=== PATIENT | female | born 1960 | race African-American/Black ===

== ENCOUNTER 2017-10-05 14:39 | Inpatient (IN) | payer BC, OTHER ==
[~2017-10-05] VITALS: Ht 162.6 cm; Wt 88.3 kg
[~2017-10-05 14:39] MED LIST: CEPH500C3 PO; PRED20 PO
[2017-10-05 14:40] VITALS: BP 185/83; PULSE 101; RESP 16; TEMP 98.9; O2SAT 96
[2017-10-05 15:16] LABS: AUTOMATED NEUTROPHIL # 3.4 TH/MM3 (1.8-7.7); BASOPHIL % 0.6 % (0.0-2.0); EOSINOPHIL # 0.1 TH/MM3 (0-0.4); EOSINOPHIL % 1.8 % (0.0-4.0); HEMATOCRIT 35.5 % (35.0-46.0); HEMOGLOBIN 11.6 GM/DL (11.6-15.3); LYMPH % 30.5 % (9.0-44.0); LYMPHOCYTE # 1.8 TH/MM3 (1.0-4.8); MEAN CELL VOLUME 86.8 FL (80.0-100.0); MEAN CORPUSCULAR HEMOGLOBIN 28.4 PG (27.0-34.0); MEAN CORPUSCULAR HGB CONC 32.7 % (32.0-36.0); MONO % 8.8 % (0.0-8.0); MONOCYTE # 0.5 TH/MM3 (0-0.9); NEUT % 58.3 % (16.0-70.0); PLATELET COUNT 310 TH/MM3 (150-450); RED BLOOD COUNT 4.09 MIL/MM3 (4.00-5.30); RED CELL DISTRIBUTION WIDTH 13.9 % (11.6-17.2); WHITE BLOOD COUNT 5.9 TH/MM3 (4.0-11.0)
[2017-10-05 15:45] LABS: ALBUMIN 3.8 GM/DL (3.4-5.0); ALT (GPT) 25 U/L (10-53); AST (GOT) 14 U/L (15-37); BICARBONATE 28.7 MEQ/L (21.0-32.0); BLOOD UREA NITROGEN 12 MG/DL (7-18); CALCIUM 8.9 MG/DL (8.5-10.1); CHLORIDE 106 MEQ/L (98-107); CREATININE 0.88 MG/DL (0.50-1.00); GLOMERULAR FILTRATION RATE 80 ML/MIN (>89); GLUCOSE,RANDOM 148 MG/DL (74-106); SODIUM (NA) 141 MEQ/L (136-145)
[2017-10-05 15:47] LABS: ALKALINE PHOSPHATASE 149 U/L (45-117); TOTAL BILIRUBIN ADULT 0.3 MG/DL (0.2-1.0); TOTAL PROTEIN 8.6 GM/DL (6.4-8.2)
[2017-10-05 16:55] LABS: BACTERIA, URINE OCC /hpf; BILIRUBIN, URINE NEG (NEG); BLOOD, URINE TRACE (NEG); GLUCOSE,URINE NEG (NEG); KETONE, URINE NEG (NEG); MUCUS URINE FEW /lpf (OCC); NITRITE,URINE NEG (NEG); PH, URINE 5.5 (5.0-8.5); SQUAMOUS EPITHELIAL CELL URINE 4 /hpf (0-5); URINE COLOR YELLOW (YELLW/STRAW); URINE LEUKOCYTE ESTERASE MOD (NEG)
[2017-10-05 17:00] VITALS: BP 136/66; PULSE 92; RESP 18
[2017-10-05] MEDS ORDERED: LORazepam 2 MG/ML VIAL IM PRN (17:00)
[2017-10-05] MEDS ORDERED: MAGNESIUM HYDROXIDE SUSP 30 ML CUP PO PRN (17:00)
[2017-10-05] MEDS ORDERED: diphenhydrAMINE HCL 50 MG/ML VIAL IM PRN (17:00)
[2017-10-05] MEDS ORDERED: ALUMINUM/MAGNESIUM/SIMETH 30 ML CUP PO PRN (17:00)
--- NOTE | 2017-10-05 17:26 | PD ---
HPI Chief Complaint: Psychiatric Symptoms Time Seen by Provider: 16:53 Travel History International Travel<30 days: No Contact w/Intl Traveler<30days: No Traveled to known affect area: No History of Present Illness HPI 57-year-old female presents to the ED for evaluation of psych. Patient with brought here voluntarily for evaluation of this peer per patient she has been out of her medications for some time. The patient she has "sabotaggers" that are trying to undermine her care. Per patient they told her to stop taking her medications. Per patient the tell her that she is not free. Per patient she does not know she needs to be on them. Per patient she does not follow with her primary care doctor. Per patient she has gets a refill every time. She denies any numbness, drooling, weakness. Denies any medical issues at this time other than needed possible medication refill. She does appear to be psychotic in whenever we talked about the "sabotaggers" she does appear to be having psychotic thoughts. She denies any homicidal suicidal ideation at this time. Denies any substance abuse. She has homeless. Symptoms appear to have worsened for the past 2 weeks since being off her medications. She does have a known history of schizophrenia per patient. [facility] Past Medical History High Cholesterol: Yes Hypertension: Yes Ovarian Cysts: Yes Past Surgical History Other Surgery: Yes (both wrists) Social History Alcohol Use: No Tobacco Use: No Substance Use: No Allergies-Medications (Allergen,Severity, Reaction): Coded Allergies: No Known Allergies (Unverified , 05/23/16) Reported Meds & Prescriptions Reported Meds & Active Scripts Active Review of Systems Except as stated in HPI: all other systems reviewed are Neg Physical Exam Narrative GENERAL: SKIN: Warm and dry. HEAD: Atraumatic. Normocephalic. EYES: Pupils equal and round. No scleral icterus. No injection or drainage. ENT: No nasal bleeding or discharge. Mucous membranes pink and moist. Tongue midline. No uvula deviation. NECK: Trachea midline. No JVD. CARDIOVASCULAR: Regular rate and rhythm. No murmurs, S3, S4. RESPIRATORY: No accessory muscle use. Clear to auscultation. Breath sounds equal bilaterally. GASTROINTESTINAL: Abdomen soft, non-tender, nondistended. Hepatic and splenic margins not palpable. MUSCULOSKELETAL: Extremities without clubbing, cyanosis, or edema. No obvious deformities. Full range of motion of the upper and lower extremities bilaterally. 2+ pulses bilaterally. NEUROLOGICAL: Awake and alert. No obvious cranial nerve deficits. Motor grossly within normal limits. Five out of 5 muscle strength in the arms and legs. Normal speech. PSYCHIATRIC: Appropriate mood and affect; insight and judgment normal. Data Data Last Documented VS Vital Signs Date Time Temp Pulse Resp B/P (MAP) Pulse Ox O2 Delivery O2 Flow Rate FiO2 10/05/17 14:40 98.9 101 16 185/83 (117) 96 Orders Orders Complete Blood Count With Diff (10/05/17 14:46) Comprehensive Metabolic Panel (10/05/17 14:46) Urinalysis - C+S If Indicated (10/05/17 14:46) Psych Screen (10/05/17 14:46) Drug Screen, Random Urine (10/05/17 14:46) Admit Order (Ed Use Only) (10/05/17 16:39) Labs Laboratory Tests Test 10/05/17 14:55 10/05/17 16:30 White Blood Count 5.9 TH/MM3 Red Blood Count 4.09 MIL/MM3 Hemoglobin 11.6 GM/DL Hematocrit 35.5 % Mean Corpuscular Volume 86.8 FL Mean Corpuscular Hemoglobin 28.4 PG Mean Corpuscular Hemoglobin Concent 32.7 % Red Cell Distribution Width 13.9 % Platelet Count 310 TH/MM3 Mean Platelet Volume 7.0 FL Neutrophils (%) (Auto) 58.3 % Lymphocytes (%) (Auto) 30.5 % Monocytes (%) (Auto) 8.8 % Eosinophils (%) (Auto) 1.8 % Basophils (%) (Auto) 0.6 % Neutrophils # (Auto) 3.4 TH/MM3 Lymphocytes # (Auto) 1.8 TH/MM3 Monocytes # (Auto) 0.5 TH/MM3 Eosinophils # (Auto) 0.1 TH/MM3 Basophils # (Auto) 0.0 TH/MM3 CBC Comment DIFF FINAL Differential Comment Blood Urea Nitrogen 12 MG/DL Creatinine 0.88 MG/DL Random Glucose 148 MG/DL Total Protein 8.6 GM/DL Albumin 3.8 GM/DL Calcium Level 8.9 MG/DL Alkaline Phosphatase 149 U/L Aspartate Amino Transf (AST/SGOT) 14 U/L Alanine Aminotransferase (ALT/SGPT) 25 U/L Total Bilirubin 0.3 MG/DL Sodium Level 141 MEQ/L Potassium Level 3.4 MEQ/L Chloride Level 106 MEQ/L Carbon Dioxide Level 28.7 MEQ/L Anion Gap 6 MEQ/L Estimat Glomerular Filtration Rate 80 ML/MIN Urine Color YELLOW Urine Turbidity CLEAR Urine pH 5.5 Urine Specific [place] 1.014 Urine Protein NEG mg/dL Urine Glucose (UA) NEG mg/dL Urine Ketones NEG mg/dL Urine Occult Blood TRACE Urine Nitrite NEG Urine Bilirubin NEG Urine Urobilinogen LESS THAN 2.0 MG/DL Urine Leukocyte Esterase MOD Urine RBC 1 /hpf Urine WBC 1 /hpf Urine Squamous Epithelial Cells 4 /hpf Urine Bacteria OCC /hpf Urine Mucus FEW /lpf Microscopic Urinalysis Comment CULT NOT INDICATED MDM Medical Decision Making Medical Screen Exam Complete: Yes Emergency Medical Condition: Yes Medical Record Reviewed: Yes Interpretation(s) CBC & BMP Diagram 10/05/17 14:55 Total Protein 8.6 H, Albumin 3.8, Calcium Level 8.9, Alkaline Phosphatase 149 H , Aspartate Amino Transf (AST/SGOT) 14 L, Alanine Aminotransferase (ALT/SGPT) 25 , Total Bilirubin 0.3 Differential Diagnosis Depression versus suicidal ideation versus anxiety versus adjustment disorder versus mood disorder versus bipolar disorder versus schizophrenia versus paranoid disorder versus psychosis versus substance abuse versus alcohol abuse versus alcohol induced psychosis versus homicidality addition versus cutting versus personality disorder Narrative Course 57-year-old female that presents to the ED for evaluation of psychiatric evaluation. Patient has probably examined as some symptoms consistent with psychosis. Dental Office Coordinator time. Likely schizophrenia. Laps were ordered. Patient was not medically clear. Okay to be seen by psych. Mental health screening was discussed with the patient. Diagnosis Primary Impression: Psychosis Qualified Codes: F29 - Unspecified psychosis not due to a substance or known physiological condition Cyrus Antony Oct 05, 2017 17:26
--- NOTE | 2017-10-05 17:27 | HHI.HP ---
Provisional Diagnosis Admission Date Oct 05, 2017 at 16:41 [place] I. Paranoid schizophrenia Certification of Person's Competence To Provide Express and Informed Consent I have personally examined Kimberly Mcpherson , a person being served at [facility] on, Oct 05, 2017 17:17. Express and informed consent means consent voluntarily given in writing, by a competent person, after sufficient explanation and disclosure of the subject matter involved to enable the person to make a knowing and willful decision without any element of force, fraud, deceit, duress, or other form of constraint or coercion. This person is 18 years of age or older, is not now known to be incompetent to consent to treatment with a guardian advocate, and does not have a health care surrogate or proxy currently making medical treatment decisions. I have found this person to be one of the following: [] Competent to provide express and informed consent, as defined above, for voluntary admission to this facility and is competent to provide express and informed consent for treatment. He/she has the consistent capacity to make well reasoned, willful, and knowing decisions concerning his or her medical or mental health treatment. The person fully and consistently understands the purpose of the admission for examination/placement and is fully capable of personally exercising all rights assured [place] [X] Incompetent to provide express and informed consent to voluntary admission, and this is incompetent to provide express and informed consent to treatment. The person must be transferred to involuntary status and a petition for a guardian advocate filed with the Circuit Court. [] Refusing to provide express and informed consent to voluntary admission but is competent to provide express and informed consent for treatment. The person must be discharged or transferred to involuntary status. Form shall be completed within 24 hours of a person's arrival at the receiving facility and filed in the clinical record of each person: 1. Admitted on a voluntary basis 2. Permitted to provide express and informed consent to his/her own treatment 3. Allowed to transfer from involuntary to voluntary status 4. Prior to permitting a person to consent to his or her own treatment after having been previously found incompetent to consent to treatment. History of Present Illness Capacity: Lacks Capacity HPI 57-year-old female who presented voluntarily to the emergency department for evaluation. Patient's chief complaint at the time was "I came in to save my life. The sabotage years are trying to kill me. They told me to walk into a car." Patient is a very poor historian and obviously psychotic. She states that she lives in a parking lot behind a sabianism, in [place]. She is oriented to time, place and date. This physician does not feel she is well oriented to situation. 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 However, she has virtually no insight into what this physician believes is a psychotic mental illness with both paranoid delusions and command auditory hallucinations. Patient denies a history of alcoholism and substance abuse. Her toxicology screen has not been done. Review of Systems ROS Limitations: Clinical Condition Psychiatric: COMPLAINS OF: Anxiety, Hallucinations, Suicidal Ideation, Delusions Except as stated in HPI: all other systems reviewed are Neg Past Psych History Psychological trauma history Unknown. Patient is a poor historian. Violence risk - others (6 mos) Minimal to moderate. Violence risk - self (6 mos) High. Substance Abuse History Drugs/Alcohol past 12 months Denied. Past Family Social History Coded Allergies: No Known Allergies (Unverified , 05/23/16) Discontinued Scripts Prednisone (Deltasone) 20 Mg Tab, 20 MG PO BID, #10 TAB Prov:Ayana Lemus 05/23/16 Cephalexin (Keflex) 500 Mg Cap, 500 MG PO QID, #20 CAP Prov:Ayana Lemus 05/23/16 Family Psych History Unknown. Patient is a poor historian. Social History Patient is unemployed. She is homeless. She declines to answer any questions about her family. She denies any substance abuse or alcoholism. Patient's Strengths (min. 2) Verbal and has access to healthcare. Patient has medical insurance according to our registration process. Physical Exam GENERAL: SKIN: Warm and dry. HEAD: Normocephalic. EYES: No scleral icterus. No injection or drainage. NECK: Supple, trachea midline. No JVD or lymphadenopathy. CARDIOVASCULAR: Regular rate and rhythm without murmurs, gallops, or rubs. RESPIRATORY: Breath sounds equal bilaterally. No accessory muscle use. GASTROINTESTINAL: Abdomen soft, non-tender, nondistended. MUSCULOSKELETAL: No cyanosis, or edema. BACK: Nontender without obvious deformity. No CVA tenderness. Vital Signs Vital Signs Date Time Temp Pulse Resp B/P (MAP) Pulse Ox O2 Delivery O2 Flow Rate FiO2 10/05/17 14:40 98.9 101 16 185/83 (117) 96 Lab Results Test 10/05/17 14:55 10/05/17 16:30 White Blood Count 5.9 TH/MM3 Red Blood Count 4.09 MIL/MM3 Hemoglobin 11.6 GM/DL Hematocrit 35.5 % Mean Corpuscular Volume 86.8 FL Mean Corpuscular Hemoglobin 28.4 PG Mean Corpuscular Hemoglobin Concent 32.7 % Red Cell Distribution Width 13.9 % Platelet Count 310 TH/MM3 Mean Platelet Volume 7.0 FL Neutrophils (%) (Auto) 58.3 % Lymphocytes (%) (Auto) 30.5 % Monocytes (%) (Auto) 8.8 % Eosinophils (%) (Auto) 1.8 % Basophils (%) (Auto) 0.6 % Neutrophils # (Auto) 3.4 TH/MM3 Lymphocytes # (Auto) 1.8 TH/MM3 Monocytes # (Auto) 0.5 TH/MM3 Eosinophils # (Auto) 0.1 TH/MM3 Basophils # (Auto) 0.0 TH/MM3 CBC Comment DIFF FINAL Differential Comment Blood Urea Nitrogen 12 MG/DL Creatinine 0.88 MG/DL Random Glucose 148 MG/DL Total Protein 8.6 GM/DL Albumin 3.8 GM/DL Calcium Level 8.9 MG/DL Alkaline Phosphatase 149 U/L Aspartate Amino Transf (AST/SGOT) 14 U/L Alanine Aminotransferase (ALT/SGPT) 25 U/L Total Bilirubin 0.3 MG/DL Sodium Level 141 MEQ/L Potassium Level 3.4 MEQ/L Chloride Level 106 MEQ/L Carbon Dioxide Level 28.7 MEQ/L Anion Gap 6 MEQ/L Estimat Glomerular Filtration Rate 80 ML/MIN Urine Color YELLOW Urine Turbidity CLEAR Urine pH 5.5 Urine Specific [place] 1.014 Urine Protein NEG mg/dL Urine Glucose (UA) NEG mg/dL Urine Ketones NEG mg/dL Urine Occult Blood TRACE Urine Nitrite NEG Urine Bilirubin NEG Urine Urobilinogen LESS THAN 2.0 MG/DL Urine Leukocyte Esterase MOD Urine RBC 1 /hpf Urine WBC 1 /hpf Urine Squamous Epithelial Cells 4 /hpf Urine Bacteria OCC /hpf Urine Mucus FEW /lpf Microscopic Urinalysis Comment CULT NOT INDICATED Mental Status Examination Appearance: Disheveled Consciousness: Alert Orientation: Person, Place, Date/Time Motor Activity: Normal gait Speech: Unremarkable Language: Adequate Fund of Knowledge: Adequate Attention and Concentration: Inadequate Memory: Impaired Mood: Anxious Affect: Blunt Thought Process & Associations: Intact Thought Content: Bizarre thinking, Ideas of reference, Hallucinations, Preoccupations, Delusional Hallucination Type: Auditory Delusion Type: None Suicidal Ideation: Yes Suicidal Plan: No Suicidal Intention: No Homicidal Ideation: No Homicidal Plan: No Homicidal Intention: No Insight: Poor Judgment: Impulsive Assessment & Plan Problem List: (1) Schizophrenia, paranoid type ICD Codes: F20.0 - Paranoid schizophrenia Assessment & Plan Estimated LOS: days. 57-year-old female who presented voluntarily but has been placed under a Lui act by this physician. She is experiencing command auditory hallucinations telling her to walk in front of cars. She is hyper hoahaoism and religiously preoccupied. She is delusional and that she believes "sabotage years" are preventing her from being a disciple of [employer]. She is felt to be at great risk for harm to self and therefore being admitted for further evaluation and treatment. This physician has ordered a CBC and comprehensive metabolic panel to determine if any infectious process or metabolic process might be causing or contributing to her psychosis. Additionally, because of her age and obesity, this physician has ordered a hemoglobin A1c and lipid panel. Psychotropic medicines can also cause an increase in blood sugar and cholesterol, endangering the patient's cardiovascular and cerebrovascular system. This physician has also ordered thyroid stimulating hormone, vitamin B-12 and vitamin D levels as deficiencies in these areas can also cause or contribute to her psychosis. An EKG is also being ordered to evaluate her cardiac conduction status as psychotropic medicines can adversely affect the electrical system of her heart. This physician spoke to the patient's nurse, Uvaldo, regarding her recent behavior. Finally, case management will be involved to assist with further information gathering and disposition planning. Chaitanya Beaver MD Oct 05, 2017 17:27
[2017-10-05 18:17] VITALS: BP 164/72; PULSE 91; RESP 18; TEMP 98.2; O2SAT 98
[2017-10-06 06:20] VITALS: BP 109/54; PULSE 98; RESP 18; TEMP 97.3; O2SAT 98
[2017-10-06 06:29] VITALS: BP_SYST 109; BP_SYST 144; BP_DIAS 54; BP_DIAS 75; PULSE 93; PULSE 98; RESP 18; TEMP 97.3; TEMP 99.1; O2SAT 97; O2SAT 98
[2017-10-06 07:02] VITALS: BP 109/54; PULSE 78; RESP 18; TEMP 97.3; O2SAT 98
--- NOTE | 2017-10-06 09:44 | PD.CONS ---
HPI Service [facility] Consult Requested By Psychiatry Reason for Consult Medical management Primary Care Physician Unknown Diagnoses: History of Present Illness 57 year-old -[place] female with a history of schizophrenia, hypertension was admitted to inpatient psychiatry for bizarre behavior. [facility] was consulted for medical management. Patient states she's been off her medicine over the past 2 weeks now. She also states, she is not willing to take any medicines until lab reports are provided to her. She reported history of varicella zoster for which she is supposed to be on acyclovir 400 mg 3 times a day, and is currently complaining of outbreak. She also reports his infections to her groin area She has no chest pain or shortness of breath Review of Systems Except as stated in HPI: all other systems reviewed are Neg Past Family Social History Allergies: Coded Allergies: No Known Allergies (Unverified Allergy, Unknown, 10/05/17) Past Medical History Hypertension, hyperlipidemia, schizophrenia Past Surgical History Ovarian cyst removed, bilateral hand surgeries Reported Medications See EMR Family History Family history positive for heart disease, hypertension, diabetes Social History Denies any tobacco, alcohol or easy drug intake Physical Exam Vital Signs Vital Signs Date Time Temp Pulse Resp B/P (MAP) Pulse Ox O2 Delivery O2 Flow Rate FiO2 10/06/17 07:02 97.3 78 18 109/54 (72) 98 10/06/17 06:29 97.3 98 18 109/54 (72) 98 10/06/17 06:20 97.3 98 18 109/54 (72) 98 10/05/17 18:39 10/05/17 18:17 98.2 91 18 164/72 (102) 98 10/05/17 17:00 92 18 136/66 (89) Room Air 10/05/17 14:40 98.9 101 16 185/83 (117) 96 Physical Exam GENERAL: This is a well-nourished, well-developed patient, in no apparent distress. SKIN: No rashes, ecchymoses or lesions. Cool and dry. HEAD: Atraumatic. Normocephalic. No temporal or scalp tenderness. EYES: Pupils equal round and reactive. Extraocular motions intact. No scleral icterus. No injection or drainage. ENT: Nose without bleeding, purulent drainage or septal hematoma. Throat without erythema, tonsillar hypertrophy or exudate. Uvula midline. Airway patent. NECK: Trachea midline. No JVD or lymphadenopathy. Supple, nontender, no meningeal signs. CARDIOVASCULAR: Regular rate and rhythm without murmurs, gallops, or rubs. RESPIRATORY: Clear to auscultation. Breath sounds equal bilaterally. No wheezes , rales, or rhonchi. GASTROINTESTINAL: Abdomen soft, non-tender, nondistended. No hepato-splenomegaly , or palpable masses. No guarding. MUSCULOSKELETAL: Extremities without clubbing, cyanosis, or edema. No joint tenderness, effusion, or edema noted. No calf tenderness. Negative Homans sign bilaterally. NEUROLOGICAL: Awake and alert. Cranial nerves II through XII intact. Motor and sensory grossly within normal limits. Five out of 5 muscle strength in all muscle groups. Normal speech. Laboratory Laboratory Tests Test 10/05/17 14:55 10/05/17 16:30 White Blood Count 5.9 Red Blood Count 4.09 Hemoglobin 11.6 Hematocrit 35.5 Mean Corpuscular Volume 86.8 Mean Corpuscular Hemoglobin 28.4 Mean Corpuscular Hemoglobin Concent 32.7 Red Cell Distribution Width 13.9 Platelet Count 310 Mean Platelet Volume 7.0 Neutrophils (%) (Auto) 58.3 Lymphocytes (%) (Auto) 30.5 Monocytes (%) (Auto) 8.8 Eosinophils (%) (Auto) 1.8 Basophils (%) (Auto) 0.6 Neutrophils # (Auto) 3.4 Lymphocytes # (Auto) 1.8 Monocytes # (Auto) 0.5 Eosinophils # (Auto) 0.1 Basophils # (Auto) 0.0 CBC Comment DIFF FINAL Differential Comment Blood Urea Nitrogen 12 Creatinine 0.88 Random Glucose 148 Total Protein 8.6 Albumin 3.8 Calcium Level 8.9 Alkaline Phosphatase 149 Aspartate Amino Transf (AST/SGOT) 14 Alanine Aminotransferase (ALT/SGPT) 25 Total Bilirubin 0.3 Sodium Level 141 Potassium Level 3.4 Chloride Level 106 Carbon Dioxide Level 28.7 Anion Gap 6 Estimat Glomerular Filtration Rate 80 Urine Color YELLOW Urine Turbidity CLEAR Urine pH 5.5 Urine Specific [place] 1.014 Urine Protein NEG Urine Glucose (UA) NEG Urine Ketones NEG Urine Occult Blood TRACE Urine Nitrite NEG Urine Bilirubin NEG Urine Urobilinogen LESS THAN 2.0 Urine Leukocyte Esterase MOD Urine RBC 1 Urine WBC 1 Urine Squamous Epithelial Cells 4 Urine Bacteria OCC Urine Mucus FEW Microscopic Urinalysis Comment CULT NOT INDICATED Urine Opiates Screen NEG Urine Barbiturates Screen NEG Urine Amphetamines Screen NEG Urine Benzodiazepines Screen NEG Urine Cocaine Screen NEG Urine Cannabinoids Screen NEG Result Diagram: 10/05/17 1455 10/05/17 1455 Assessment and Plan Assessment and Plan 57-year-old female with Schizophrenia Acute bizarre behavior with depressed mood Management per psychiatry Varicella zoster outbreak Resume acyclovir 400 mg 3 times a day Yeast infection Nystatin powder twice a day Hypokalemia Replace electrolyte and monitor History of hypertension Currently soft BP, continue to monitor DVT prophylaxis: Encourage ambulation Thank you for this consultation, [facility] will sign off and reconsult when necessary Code Status Full code Discussed Condition With Patient Davy Martinez MD Oct 06, 2017 09:44
[2017-10-06] MEDS ORDERED: POTASSIUM CHLORIDE 10 MEQ CONTROLLED RELEASE TAB PO ONE (10:15)
[2017-10-06] MEDS: ACYCLOVIR 200 MG CAP PO SCH ×3 (10:30→22:00)
--- NOTE | 2017-10-06 13:25 | PD.PSY.CON ---
Provisional Diagnosis Admission Date Oct 05, 2017 at 16:41 [place]. 1. Other psychotic disorder Rule out chronic psychotic illness such as schizophrenia Rule out component of malingering for skilled nursing [place]. Deferred History of Present Illness Service Psychiatry Consult Requested By Dr. Beaver Reason for Consult Second opinion for involuntary psychiatric hospitalization Primary Care Physician Unknown HPI From Dr. Beaver's H&P: 57-year-old female who presented voluntarily to the emergency department for evaluation. Patient's chief complaint at the time was "I came in to save my life. The sabotage years are trying to kill me. They told me to walk into a car." Patient is a very poor historian and obviously psychotic. She states that she lives in a parking lot behind a roman catholic, in [place]. She is oriented to time, place and date. This physician does not feel she is well oriented to situation. 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 How can you preach to fake people." When asked how she has food to eat the patient replies "God will provide." She admits to being from [place] and admits she was Lui acted there twice. However, she has virtually no insight into what this physician believes is a psychotic mental illness with both paranoid delusions and command auditory hallucinations. Patient denies a history of alcoholism and substance abuse. Her toxicology screen has not been done. On my examination today: Patient seen and examined with nurse. Chart reviewed. I note only 1 prior contact within our system: patient presented to ED with complaints of rash and pedal edema. Interestingly, there was no indication of any sort of psychiatric disturbance during that visit. Case discussed with nursing staff who reports that patient professes to be a "disciple of God." She is noted to have a somatic preoccupation per nursing staff. She reportedly refused to take meals in the day are but did accept lunch seated at a table outside of her room. On my examination, patient continues to perseverate on jain themes. She conducts the interview seated on her bed with a sheet covering her face. She tells me that she cannot eat meals in the day area because there are "sabotagers " out to get her. Affect is generally dysphoric, although she does not elaborate any depressive or hypomanic/manic symptoms. There is a fairly manipulative quality to her presentation. She explains that she will not accept psychotropic medications but wishes to be, in effect, housed on the inpatient unit. She threatens that if I discharge her, she will throw herself into traffic. She does not describe any SI/HI on the inpatient unit. Remainder of the psychiatric ROS is negative. No physical complaints presently. PPH: Likely an unreliable historian. Reports a history of depression. Not currently under the care of a psychiatrist. Reports a history of previous psychiatric hospitalizations. FH: No reported family history of mental illness. CD: No reported substance use issues. SH: Previously resided in [place]. She initially says that she is but then says she does not believe that she was ever , nor does think she has any children, although I see a daughter listed in the EMR. Given concern for severely decompensated psychiatric illness, I did endeavor to reach out to patient's daughter Sara at the number listed in the EMR. I left generic x 2 requesting a call back. Review of Systems ROS Limitations: Uncooperative, Psychotic, Poor Historian Except as stated in HPI: all other systems reviewed are Neg Past Family Social History Coded Allergies: No Known Allergies (Unverified Allergy, Unknown, 10/05/17) Past Medical History See EMR Discontinued Scripts Prednisone (Deltasone) 20 Mg Tab, 20 MG PO BID, #10 TAB Prov:Ayana Lemus 05/23/16 Cephalexin (Keflex) 500 Mg Cap, 500 MG PO QID, #20 CAP Prov:Ayana Lemus 05/23/16 Current Medications Medications (Trade) Dose Ordered Sig/Shalom Route Start Time Stop Time Status Last Admin (Ativan) 1 mg Q6H PRN PO 10/05/17 17:00 Future Hold (Ativan Inj) 1 mg Q6H PRN IM 10/05/17 17:00 Future Hold (Benadryl) 50 mg HS PRN PO 10/05/17 17:00 Future Hold (Benadryl Inj) 50 mg HS PRN IM 10/05/17 17:00 Future Hold (Tylenol) 650 mg Q4H PRN PO 10/05/17 17:00 (Milk Of Magnesia Liq) 30 ml DAILY PRN PO 10/05/17 17:00 (Mag-Al Plus Susp Liq) 30 ml Q6H PRN PO 10/05/17 17:00 (Zovirax) 400 mg Q8HR PO 10/06/17 10:30 (Mycostatin Powder) 1 applic Q12HR TOPICAL 10/06/17 21:00 Patient's Strengths (min. 2) In a monitored setting. Verbally fluent. Physical Exam Physical examination completed by hospitalist party plan sales consultant. On my examination today, the patient appears to be no acute physical distress. No motor abnormalities noted. Labs and vitals reviewed: Vital Signs Vital Signs Date Time Temp Pulse Resp B/P (MAP) Pulse Ox O2 Delivery O2 Flow Rate FiO2 10/06/17 07:02 97.3 78 18 109/54 (72) 98 10/05/17 17:00 Room Air Lab Results Item Value Date Time White Blood Count 5.9 TH/MM3 10/05/17 1455 Hemoglobin 11.6 GM/DL 10/05/17 1455 Platelet Count 310 TH/MM3 10/05/17 1455 Sodium Level 141 MEQ/L 10/05/17 1455 Potassium Level 3.4 MEQ/L L 10/05/17 1455 Chloride Level 106 MEQ/L 10/05/17 1455 Carbon Dioxide Level 28.7 MEQ/L 10/05/17 1455 Blood Urea Nitrogen 12 MG/DL 10/05/17 1455 Creatinine 0.88 MG/DL 10/05/17 1455 Estimat Glomerular Filtration Rate 80 ML/MIN L 10/05/17 1455 Aspartate Amino Transf (AST/SGOT) 14 U/L L 10/05/17 1455 Alanine Aminotransferase (ALT/SGPT) 25 U/L 10/05/17 1455 Alkaline Phosphatase 149 U/L H 10/05/17 1455 Urine Opiates Screen NEG 10/05/17 1630 Urine Barbiturates Screen NEG 10/05/17 1630 Urine Amphetamines Screen NEG 10/05/17 1630 Urine Benzodiazepines Screen NEG 10/05/17 1630 Urine Cocaine Screen NEG 10/05/17 1630 Urine Cannabinoids Screen NEG 10/05/17 1630 Labs reviewed. Hypokalemia noted; this has been repleted. Urinalysis results reviewed. Remainder of laboratory work ordered by Dr. Beaver is listed as "in process." Mental Status Examination Appearance: Disheveled Consciousness: Alert Orientation: Person, Place (at least) Motor Activity: Other (no motor abnormalities noted) Speech: Unremarkable Language: Adequate Fund of Knowledge: Adequate Attention and Concentration: Easily Distracted Memory: Impaired Mood: Other (dysphoric) Affect: Other (restricted) Thought Process & Associations: Intact Thought Content: Bizarre thinking, Hallucinations, Preoccupations, Delusional Hallucination Type: Auditory (appears internally stimulated) Delusion Type: Paranoid, Other (jain) Suicidal Ideation: Yes (Threatens suicide if discharged. No reported urge to hurt herself on the inpatient psychiatric unit.) Suicidal Plan: No Suicidal Intention: No Homicidal Ideation: No Homicidal Plan: No Homicidal Intention: No Insight: Poor Judgment: Poor Assessment & Plan Problem List: (1) Psychosis ICD Codes: F29 - Unspecified psychosis not due to a substance or known physiological condition Status: Acute Assessment & Plan Given the circumstances of her presentation here, and her presentation on my examination today, I concur with Dr. Beaver that the patient meets criteria for involuntary psychiatric hospitalization a Lui act. I have completed the second opinion paperwork. I note that Dr. Beaver has also requested a healthcare surrogate and guardian advocate, and I concur that the patient is incapacitated to consent for medication/treatment in her present state. I will be assuming primary care of the patient. Presently, we have no one to act as HCS, and so psychotropic medications are on hold. Follow up on outstanding labs and EKG. Hospitalist input noted and appreciated. Continue to monitor on inpatient unit. Continue other medications and care as ordered. Discharge Planning Pending outcome of observation/stabilization Request HC Surrog/Guard Advoc?: Yes Problem Qualifiers (1) Psychosis: Qualified Codes: F28 - Other psychotic disorder not due to a substance or known physiological condition Brian Cleveland MD Oct 06, 2017 13:25
[2017-10-06 18:00] VITALS: BP 162/80; PULSE 86; RESP 18; TEMP 98.6; O2SAT 98
[2017-10-06 19:29] LABS: AUTOMATED NEUTROPHIL # 2.5 TH/MM3 (1.8-7.7); BASOPHIL % 0.8 % (0.0-2.0); EOSINOPHIL # 0.2 TH/MM3 (0-0.4); HEMATOCRIT 33.4 % (35.0-46.0); HEMOGLOBIN 10.8 GM/DL (11.6-15.3); LYMPH % 36.9 % (9.0-44.0); LYMPHOCYTE # 1.9 TH/MM3 (1.0-4.8); MEAN CELL VOLUME 85.3 FL (80.0-100.0); MEAN CORPUSCULAR HEMOGLOBIN 27.5 PG (27.0-34.0); MEAN CORPUSCULAR HGB CONC 32.2 % (32.0-36.0); MEAN PLATELET VOLUME 7.4 FL (7.0-11.0); MONO % 10.7 % (0.0-8.0); MONOCYTE # 0.6 TH/MM3 (0-0.9); NEUT % 48.6 % (16.0-70.0); PLATELET COUNT 268 TH/MM3 (150-450); RED BLOOD COUNT 3.92 MIL/MM3 (4.00-5.30); RED CELL DISTRIBUTION WIDTH 13.9 % (11.6-17.2); WHITE BLOOD COUNT 5.2 TH/MM3 (4.0-11.0)
[2017-10-06 19:44] LABS: ALBUMIN 3.3 GM/DL (3.4-5.0); AST (GOT) 13 U/L (15-37); BICARBONATE 29.2 MEQ/L (21.0-32.0); BLOOD UREA NITROGEN 14 MG/DL (7-18); CALCIUM 8.6 MG/DL (8.5-10.1); CHLORIDE 107 MEQ/L (98-107); CREATININE 0.93 MG/DL (0.50-1.00); GLOMERULAR FILTRATION RATE 75 ML/MIN (>89); GLUCOSE,RANDOM 93 MG/DL (74-106); SODIUM (NA) 140 MEQ/L (136-145)
[2017-10-06 19:45] LABS: CHOLESTEROL 218 MG/DL (120-200)
[2017-10-06 19:48] LABS: ALKALINE PHOSPHATASE 133 U/L (45-117); ALT (GPT) 21 U/L (10-53); CHOLESTEROL/ HDL RATIO 3.22 RATIO; HDL CHOLESTEROL 67.7 MG/DL (40.0-60.0); LDL CHOLESTEROL 134 MG/DL (0-99); TOTAL BILIRUBIN ADULT 0.2 MG/DL (0.2-1.0); TOTAL PROTEIN 7.8 GM/DL (6.4-8.2); TRIGLYCERIDES 82 MG/DL (42-150)
[2017-10-06] MEDS: NYSTATIN 100,000 U/GM PWD 15 GM BTL TOPICAL SCH (21:00)
[2017-10-06 22:19] LABS: HEMOGLOBIN A1C 6.2 % (4.3-6.0)
[2017-10-07] MEDS: ACYCLOVIR 200 MG CAP PO SCH ×3 (06:11→22:44)
--- NOTE | 2017-10-07 14:10 | HHI.PYPN ---
Subjective Chief Complaint: Psychosis Remarks Patient seen and examined with nurse. Chart reviewed. Patient refused breakfast but took 100% of lunch. Case discussed with nursing staff. On my exam, patient is dysphoric. She articulates a belief that "everything is fake. " She feels that she is under "too much stress. I wanna be free. Free. Free. " She continues to report suicidal ideation noting "there's no doubt I'm going to commit suicide." However, she denies any urge to hurt herself on the inpatient unit, saying that she wants to [place] the ocean. She continues to refuse to provide any collateral source. Complains of yeast infection. No other physical complaints. I did again try to reach daughter at number listed in EMR. Female answered and reported this was a wrong number and requested we stop calling. I asked UR team to contact insurer to see if they have any NOK information on file. Review of Systems ROS Limitations: Psychotic, Poor Historian Except as stated in HPI: all other systems reviewed are Neg Mental Status Examination Appearance: Disheveled Consciousness: Alert Orientation: Person, Place (at least) Motor Activity: Other (no motor abnormalities noted) Speech: Unremarkable Language: Adequate Fund of Knowledge: Adequate Attention and Concentration: Easily Distracted Mood: Other (Remains dysphoric) Affect: Other (restricted) Thought Process & Associations: Intact Thought Content: Bizarre thinking, Hallucinations, Preoccupations, Delusional Hallucination Type: None Delusion Type: Bizarre, Paranoid, Other (amish) Suicidal Ideation: Yes (No reported urge to hurt self on inpatient unit, though ) Suicidal Plan: Yes (Wants to complete suicide at the ocean) Suicidal Intention: Yes (but not on inpatient unit) Homicidal Ideation: No Homicidal Plan: No Homicidal Intention: No Insight: Poor Judgment: Poor Results Labs Test 10/06/17 18:57 White Blood Count 5.2 TH/MM3 Red Blood Count 3.92 MIL/MM3 Hemoglobin 10.8 GM/DL Hematocrit 33.4 % Mean Corpuscular Volume 85.3 FL Mean Corpuscular Hemoglobin 27.5 PG Mean Corpuscular Hemoglobin Concent 32.2 % Red Cell Distribution Width 13.9 % Platelet Count 268 TH/MM3 Mean Platelet Volume 7.4 FL Neutrophils (%) (Auto) 48.6 % Lymphocytes (%) (Auto) 36.9 % Monocytes (%) (Auto) 10.7 % Eosinophils (%) (Auto) 3.0 % Basophils (%) (Auto) 0.8 % Neutrophils # (Auto) 2.5 TH/MM3 Lymphocytes # (Auto) 1.9 TH/MM3 Monocytes # (Auto) 0.6 TH/MM3 Eosinophils # (Auto) 0.2 TH/MM3 Basophils # (Auto) 0.0 TH/MM3 CBC Comment DIFF FINAL Differential Comment Blood Urea Nitrogen 14 MG/DL Creatinine 0.93 MG/DL Random Glucose 93 MG/DL Total Protein 7.8 GM/DL Albumin 3.3 GM/DL Calcium Level 8.6 MG/DL Alkaline Phosphatase 133 U/L Aspartate Amino Transf (AST/SGOT) 13 U/L Alanine Aminotransferase (ALT/SGPT) 21 U/L Total Bilirubin 0.2 MG/DL Sodium Level 140 MEQ/L Potassium Level 4.1 MEQ/L Chloride Level 107 MEQ/L Carbon Dioxide Level 29.2 MEQ/L Anion Gap 4 MEQ/L Estimat Glomerular Filtration Rate 75 ML/MIN Hemoglobin A1c 6.2 % Triglycerides Level 82 MG/DL Cholesterol Level 218 MG/DL LDL Cholesterol 134 MG/DL HDL Cholesterol 67.7 MG/DL Cholesterol/HDL Ratio 3.22 RATIO Vitamin B12 Level 445 PG/ML 25-Hydroxy Vitamin D Total 21.4 ng/ML Thyroid Stimulating Hormone 3rd Gen 1.050 uIU/ML Labs reviewed. Low vitamin D noted. Mild normocytic anemia noted. Improving alkaline phosphatase elevation noted. Vitals/IOs Vital Signs Date Time Temp Pulse Resp B/P (MAP) Pulse Ox O2 Delivery O2 Flow Rate FiO2 10/06/17 18:00 98.6 86 18 162/80 (107) 98 10/05/17 17:00 Room Air Intake and Output 10/07/17 10/07/17 10/08/17 08:00 16:00 00:00 Intake Total 240 ml Balance 240 ml Assessment & Plan Problem List: (1) Psychosis ICD Codes: F29 - Unspecified psychosis not due to a substance or known physiological condition Status: Acute Assessment & Plan: Rule out primary psychotic illness, rule out mood disorder with psychotic features, rule out malingering for custodial. Assessment & Plan Awaiting [facility] to initiate pharmacotherapy; we may be forced to await [address] on . Patient remains too psychiatrically impaired to consent for medications if reported psychiatric symptoms are to be believed. I do continue to wonder about a component of symptom exaggeration for custodial, but it seems more likely that current presentation represents miguelina camron psychiatric illness. Fluconazole 150mg once for c/o yeast infection. Continue to monitor on inpatient unit. Continue other medications and care as ordered. Justification for Cont. Inpt. Concern for impairment in safety and impairment in reality construction. High risk for decompensation in less restrictive setting. Discharge Planning Pending stabilization. Request HC Surrog/Guard Advoc?: Yes Problem Qualifiers (1) Psychosis: Qualified Codes: F28 - Other psychotic disorder not due to a substance or known physiological condition Brian Cleveland MD Oct 07, 2017 14:10
[2017-10-07 14:43] VITALS: BP 119/60; PULSE 79; RESP 20; TEMP 98.4; O2SAT 98
[2017-10-07] MEDS ORDERED: PILL SPLITTER OTHER PRN (16:30)
[2017-10-07] MEDS ORDERED: FLUCONAZOLE 100 MG TAB PO ONE (16:30)
[2017-10-07 18:35] VITALS: BP 126/64; PULSE 84; RESP 18; TEMP 98.1; O2SAT 98
[2017-10-07] MEDS: NYSTATIN 100,000 U/GM PWD 15 GM BTL TOPICAL SCH (21:22)
[2017-10-08] MEDS: ACYCLOVIR 200 MG CAP PO SCH ×3 (06:05→21:38)
[2017-10-08 06:14] VITALS: BP 116/57; PULSE 74; RESP 16; TEMP 97.9; O2SAT 97
[2017-10-08] MEDS: NYSTATIN 100,000 U/GM PWD 15 GM BTL TOPICAL SCH ×2 (09:00→21:38)
--- NOTE | 2017-10-08 12:49 | HHI.PYPN ---
Subjective Chief Complaint: Psychosis Remarks Patient seen and examined with nurse. Chart reviewed. Case discussed with nursing staff who reports that the patient took her meals today sitting in the alcove where the patient telephone is located. On my examination today, the patient remains paranoid and dysphoric. She covers her eyes with her hands, and I do suspect that this has a psychotic basis although she will not say why she is doing this. She does tell me that she is "trying not to kill myself." She says that she would not try to kill herself on the inpatient unit because " I want to fix myself up to see [employer]. I want to buy an outfit and put on makeup to see [employer]." She says that she can only do these things outside of the hospital. She does make occasional bizarre statements like "there is no music here." She appears internally stimulated. She does say that some of her ideation is ego dystonic and agrees that she would like to be rid of this. She does seem more receptive to having a conversation regarding psychotropic medications today, and I judged she is now capacitated to consent for medications. No physical complaints. Review of Systems ROS Limitations: Psychotic Except as stated in HPI: all other systems reviewed are Neg Mental Status Examination Appearance: Disheveled Consciousness: Alert Orientation: Person, Place (at least) Motor Activity: Other (no abnormal motor movements noted) Speech: Unremarkable Language: Adequate Fund of Knowledge: Adequate Attention and Concentration: Easily Distracted Mood: Other (remains quite dysphoric) Affect: Other (restricted) Thought Process & Associations: Intact Thought Content: Bizarre thinking, Hallucinations, Preoccupations, Delusional Hallucination Type: Other (appears internally stimulated) Delusion Type: Bizarre, Paranoid, Other (buddhism) Suicidal Ideation: Yes (again no urge to hurt self on the inpatient unit) Suicidal Plan: No (no specific plan articulated today although the patient does want to "fix myself up" before attempting) Suicidal Intention: Yes (no urge to hurt self on the inpatient unit.) Homicidal Ideation: No Homicidal Plan: No Homicidal Intention: No Insight: Poor Judgment: Poor Results Labs Labs reviewed. No new labs. Vitals/IOs Vital Signs Date Time Temp Pulse Resp B/P (MAP) Pulse Ox O2 Delivery O2 Flow Rate FiO2 10/08/17 06:14 97.9 74 16 116/57 (76) 97 10/05/17 17:00 Room Air Intake and Output 10/08/17 10/08/17 10/09/17 08:00 16:00 00:00 Intake Total 240 ml Balance 240 ml Assessment & Plan Problem List: (1) Psychosis ICD Codes: F29 - Unspecified psychosis not due to a substance or known physiological condition Status: Acute Assessment & Plan Initiate Abilify 10 mg daily for the management of psychosis. Weekend rounding physician, please consider titrating this agent to effect. R/B/A for Abilify discussed with patient in detail. Continue to monitor on the inpatient unit. Will request an occupational therapy consultation. Continue other medications and care as ordered. Justification for Cont. Inpt. Medication changes. Impairment in reality construction. High risk for decompensation in less restrictive environment. Discharge Planning Pending psychiatric stabilization Request HC Surrog/Guard Advoc?: No (patient capacitated to consent for medication/treatment) Problem Qualifiers (1) Psychosis: Qualified Codes: F28 - Other psychotic disorder not due to a substance or known physiological condition Brian Cleveland MD Oct 08, 2017 12:49
[2017-10-08] MEDS: ARIPiprazole 10 MG TAB PO SCH (14:00)
[2017-10-08 18:29] VITALS: BP 141/88; PULSE 84; RESP 16; TEMP 98.3; O2SAT 97
[2017-10-09] MEDS: ACYCLOVIR 200 MG CAP PO SCH ×3 (05:53→22:00)
[2017-10-09 06:04] VITALS: BP 128/59; PULSE 82; RESP 16; TEMP 98; O2SAT 96
[2017-10-09] MEDS: ARIPiprazole 10 MG TAB PO SCH (09:00)
[2017-10-09] MEDS: NYSTATIN 100,000 U/GM PWD 15 GM BTL TOPICAL SCH ×2 (09:00→21:00)
--- NOTE | 2017-10-09 12:39 | HHI.PYPN ---
Subjective Chief Complaint: Psychosis Remarks Patient was seen and case discussed with nursing. Patient is acutely psychotic and internally stimulated. Poor eye contact, psychomotor retardation, slow soft speech. She is seclusive throughout the day. She paranoid concerning her medications per nursing. Patient describes us as fake people Mental Status Examination Appearance: Disheveled Consciousness: Alert Orientation: Person, Place (at least) Motor Activity: Other (no abnormal motor movements noted) Speech: Unremarkable Language: Adequate Fund of Knowledge: Adequate Attention and Concentration: Easily Distracted Mood: Other (remains quite dysphoric) Affect: Other (restricted) Thought Process & Associations: Intact Thought Content: Bizarre thinking, Hallucinations, Preoccupations, Delusional Hallucination Type: Other (appears internally stimulated) Delusion Type: Bizarre, Paranoid, Other (confucianism) Suicidal Ideation: Yes (again no urge to hurt self on the inpatient unit) Suicidal Plan: No (no specific plan articulated today although the patient does want to "fix myself up" before attempting) Suicidal Intention: Yes (no urge to hurt self on the inpatient unit.) Homicidal Ideation: No Homicidal Plan: No Homicidal Intention: No Insight: Poor Judgment: Poor Results Vitals/IOs Vital Signs Date Time Temp Pulse Resp B/P (MAP) Pulse Ox O2 Delivery O2 Flow Rate FiO2 10/09/17 06:04 98.0 82 16 128/59 (82) 96 10/05/17 17:00 Room Air Assessment & Plan Problem List: (1) Psychosis ICD Codes: F29 - Unspecified psychosis not due to a substance or known physiological condition Status: Acute Assessment & Plan Given patient's psychosis and request for titration we will increase Abilify to 20 mg by mouth daily starting tomorrow Justification for Cont. Inpt. Patient would decompensate in a less restrictive setting Request HC Surrog/Guard Advoc?: No (patient capacitated to consent for medication/treatment) Problem Qualifiers (1) Psychosis: Qualified Codes: F28 - Other psychotic disorder not due to a substance or known physiological condition Paul Bella DO Oct 09, 2017 12:39
--- NOTE | 2017-10-09 14:02 | EKG ---
Date Performed: 10/08/2017 Time Performed: 13:46:20 PTAGE: 57 years EKG: Sinus rhythm LOW QRS VOLTAGE IN PRECORDIAL LEADS BORDERLINE ECG Compared to PREVIOUS TRACING , prior inferior infarct is no longer seen. PREVIOUS TRACIN05/23/2016 09.26 DOCTOR: Tk Oliveros Interpretating Date/Time 10/09/2017 14:01:36
[2017-10-09 17:30] VITALS: BP 151/78; PULSE 85; RESP 16; TEMP 98.6; O2SAT 98
[2017-10-10 05:41] VITALS: BP 132/62; PULSE 75; RESP 16; TEMP 97.4; O2SAT 97
[2017-10-10] MEDS: ACYCLOVIR 200 MG CAP PO SCH ×3 (06:33→20:43)
[2017-10-10] MEDS: NYSTATIN 100,000 U/GM PWD 15 GM BTL TOPICAL SCH ×2 (08:47→21:00)
--- NOTE | 2017-10-10 12:42 | HHI.PYPN ---
Subjective Chief Complaint: Psychosis Remarks Patient was seen and case discussed with nursing. Patient is more talkative today. She admits to psychosis in the form of demons that her everywhere. She gets messages from God and demons. She is very seclusive to her room and consequently uses her hand to block her vision. Abilify was increased yesterday. Denies suicidal or homicidal ideation intent or plan. Affect is irritable Mental Status Examination Appearance: Disheveled Consciousness: Alert Orientation: Person, Place (at least) Motor Activity: Other (no abnormal motor movements noted) Speech: Unremarkable Language: Adequate Fund of Knowledge: Adequate Attention and Concentration: Easily Distracted Mood: Irritable Affect: Irritable, Other Thought Process & Associations: Intact Thought Content: Bizarre thinking, Hallucinations, Preoccupations, Delusional Hallucination Type: Auditory, Other (appears internally stimulated) Delusion Type: Bizarre, Paranoid, Other (gnosticism) Suicidal Ideation: No Suicidal Plan: No (no specific plan articulated today although the patient does want to "fix myself up" before attempting) Suicidal Intention: No Homicidal Ideation: No Homicidal Plan: No Homicidal Intention: No Insight: Poor Judgment: Poor Results Vitals/IOs Vital Signs Date Time Temp Pulse Resp B/P (MAP) Pulse Ox O2 Delivery O2 Flow Rate FiO2 10/10/17 05:41 97.4 75 16 132/62 (85) 97 Assessment & Plan Problem List: (1) Psychosis ICD Codes: F29 - Unspecified psychosis not due to a substance or known physiological condition Status: Acute Assessment & Plan Continue current treatment plan Justification for Cont. Inpt. Patient will decompensate in a less restrictive setting Request HC Surrog/Guard Advoc?: No (patient capacitated to consent for medication/treatment) Problem Qualifiers (1) Psychosis: Qualified Codes: F28 - Other psychotic disorder not due to a substance or known physiological condition Paul Bella DO Oct 10, 2017 12:42
[2017-10-10 18:42] VITALS: BP 154/74; PULSE 88; RESP 16; TEMP 98.6; O2SAT 98
[2017-10-11] MEDS: ACYCLOVIR 200 MG CAP PO SCH ×3 (05:52→20:36)
[2017-10-11 06:19] VITALS: BP 137/78; PULSE 83; RESP 16; TEMP 97.8; O2SAT 97
--- NOTE | 2017-10-11 08:20 | HHI.PYPN ---
Subjective Chief Complaint: Psychosis Remarks Patient seen and examined with nurse. Chart reviewed. Case discussed with nursing staff who reports that the patient is coming out of her room to eat but insists on placing her tray on the trashcan and sitting with her back to her peers, likely as a consequence of paranoia. She complains of auditory hallucinations of demons to the nursing staff. On my examination today, the patient is laying in bed. She keeps her eyes covered throughout the interview. She continues to say that everything is "fake" and says that she doesn't expect any medication to change this. She says that her mood is "crying and sad." She continues to endorse suicidal ideation with plan to drown herself in the ocean. She denies any urge to hurt herself on the inpatient unit. Sleep is fair. Complains that Abilify is too sedating during the day, requests that we move this to HS. Denies other side effects. No physical complaints. Requesting a large-print bible, and I have asked RT to get one for her. Review of Systems ROS Limitations: Psychotic Except as stated in HPI: all other systems reviewed are Neg Mental Status Examination Appearance: Disheveled Consciousness: Alert Orientation: Person, Place Motor Activity: Other (no motoric abnormalities noted) Speech: Unremarkable Language: Adequate Fund of Knowledge: Adequate Attention and Concentration: Easily Distracted Mood: Irritable, Other (dysphoric) Affect: Irritable, Other (restricted) Thought Process & Associations: Intact Thought Content: Bizarre thinking, Hallucinations, Preoccupations, Delusional Hallucination Type: Auditory (remains internally stimulated) Delusion Type: Bizarre, Paranoid (with sikh overtones) Suicidal Ideation: Yes Suicidal Plan: Yes (drown self in ocean) Suicidal Intention: No (denies any urge to hurt herself on the inpatient unit) Homicidal Ideation: No Homicidal Plan: No Homicidal Intention: No Insight: Poor Judgment: Poor Results Labs Labs reviewed. No new labs. Vitals/IOs Vital Signs Date Time Temp Pulse Resp B/P (MAP) Pulse Ox O2 Delivery O2 Flow Rate FiO2 10/11/17 06:19 97.8 83 16 137/78 (29) 97 Assessment & Plan Problem List: (1) Psychosis ICD Codes: F29 - Unspecified psychosis not due to a substance or known physiological condition Status: Acute Assessment & Plan Titrate Abilify to 30 mg daily and move to bedtime per patient preference. I have recommended that we consider adding an antidepressant or mood stabilizer for patient's dysphoria if titration of Abilify is insufficient to control her symptoms, we will follow-up on this tomorrow. Continue to monitor on inpatient unit. Continue other medications and care as ordered. Justification for Cont. Inpt. Medication changes. Monitoring for impairment and safety. Impairment in reality construction. High risk for decompensation in less restrictive environment. Discharge Planning Pending psychiatric stabilization. Case discussed with counselor. Request HC Surrog/Guard Advoc?: No Problem Qualifiers (1) Psychosis: Qualified Codes: F28 - Other psychotic disorder not due to a substance or known physiological condition Brian Cleveland MD Oct 11, 2017 08:20
[2017-10-11] MEDS: NYSTATIN 100,000 U/GM PWD 15 GM BTL TOPICAL SCH ×2 (09:00→20:39)
[2017-10-11 18:23] VITALS: BP 140/80; PULSE 82; RESP 16; TEMP 98
[2017-10-11] MEDS ORDERED: ARIPiprazole 30 MG TAB PO SCH (21:00)
[2017-10-12] MEDS: ACETAMINOPHEN 325 MG TAB PO PRN ×2 (04:12→20:29)
[2017-10-12 05:58] VITALS: BP 113/71; PULSE 81; RESP 16; TEMP 98.2; O2SAT 98
[2017-10-12 06:00] VITALS: BP 133/71; PULSE 81; RESP 16; TEMP 98.2; O2SAT 98
[2017-10-12] MEDS: ACYCLOVIR 200 MG CAP PO SCH ×3 (06:28→20:21)
[2017-10-12] MEDS: NYSTATIN 100,000 U/GM PWD 15 GM BTL TOPICAL SCH ×2 (09:00→20:27)
--- NOTE | 2017-10-12 10:32 | PD.TTN ---
Patient Problems 1. Discharge planning 2. Medication compliance 3. Knowledge deficit 4. Lack of coping skills Progress Toward Goals Provider Present: Dr. Manny Cleveland Provider Input: 10/08/17 patient is psychotic and not giving information and no family Psychiatric Counselors Present: Madison Kruger LCSW Psych Therapist Input: 10/08/17 patient has not given info yet Group Spec/RT/OT/HAYWOOD Present: MALCOM Bettencourt Group Spec/RT/OT/HAYWOOD Input: 10/08 seclusive to room Madison Kruger LCSW Oct 12, 2017 10:32
--- NOTE | 2017-10-12 10:41 | HHI.PYPN ---
Subjective Chief Complaint: Psychosis Remarks Patient seen and examined with nurse. Chart reviewed. Case discussed with nursing staff and in treatment team. On my examination today, patient seems considerably more interactive. She keeps her eyes uncovered for the interview. She tells me today, "I don't want to kill myself." She does feel like people are "shadowing" her when she urinates outside the [facility] where [facility] stays. She does feel fairly anxious and feels that she needs a "soccer mom antidepressant. " I can elicit no history of ida. We discuss R/B/A of a trial of Prozac. Denies side effects from current medications and feels like the Abilify is helping. No physical complaints. Review of Systems ROS Limitations: Psychotic (lessening) Except as stated in HPI: all other systems reviewed are Neg Mental Status Examination Appearance: Disheveled Consciousness: Alert Orientation: Person, Place (at least) Motor Activity: Other (no abnormal motor movements noted) Speech: Unremarkable Language: Adequate Fund of Knowledge: Adequate Attention and Concentration: Adequate Mood: Anxious Affect: Blunt Thought Process & Associations: Intact, Linear Thought Content: Delusional Hallucination Type: None Delusion Type: Paranoid (perhaps decreasing) Suicidal Ideation: No Suicidal Plan: No Suicidal Intention: No Homicidal Ideation: No Homicidal Plan: No Homicidal Intention: No Insight: Poor Judgment: Poor Results Labs Labs reviewed. CBC and CMP are listed as "in process" Vitals/IOs Vital Signs Date Time Temp Pulse Resp B/P (MAP) Pulse Ox O2 Delivery O2 Flow Rate FiO2 10/12/17 06:00 98.2 81 16 133/71 (91) 98 Assessment & Plan Problem List: (1) Psychosis ICD Codes: F29 - Unspecified psychosis not due to a substance or known physiological condition Status: Acute Assessment & Plan Initiate Prozac 10 mg daily with plans to titrate to effect target anxious symptoms. Continue Abilify as ordered. Follow-up laboratories. Continue to monitor on the inpatient unit. Continue other medications and care as ordered. Patient may sign voluntary. Justification for Cont. Inpt. Med changes. Resolving impairments in reality construction. Discharge Planning Pending psychiatric stabilization. Request HC Surrog/Guard Advoc?: No Problem Qualifiers (1) Psychosis: Qualified Codes: F28 - Other psychotic disorder not due to a substance or known physiological condition Brian Cleveland MD Oct 12, 2017 10:41
--- NOTE | 2017-10-12 11:46 | PD.TTN ---
Patient Problems 1. Discharge planning 2. Medication compliance 3. Knowledge deficit 4. Lack of coping skills Progress Toward Goals Provider Present: Dr. Manny Cleveland Provider Input: 10/12/2017 - Dr. cleveland reported the patient made vague statements such as "everything is fake", and "I want to go to the ocean and be with Finesse." Dr. Cleveland may initiate an anti-depressant. 10/08/17 patient is psychotic and not giving information and no family Psychiatric Counselors Present: Madison Kruger LCSW, Kavya Licona [facility] Psych Therapist Input: 10/12/2017 - Counselor reported that I will investigate the patient's livng siituation. 10/08/17 patient has not given info yet Group Spec/RT/OT/HAYWOOD Present: MALCOM Bettencourt Group Spec/RT/OT/HAYWOOD Input: 10/12/2017 - Patient isolates to her room and will be encouraged to attend and participate in scheduled activities. 10/08 seclusive to room Discharge Plan SMA Counselor is attempting to contact family in an effort to plan a safe and appropriate discharge. Documentation Scribe: ELOISE Roblero Date Resolved: Oct 12, 2017 Kavya LiconaRima Oct 12, 2017 11:46
[2017-10-12] MEDS: FLUoxetine HCL 10 MG CAP PO SCH (12:09)
[2017-10-12] MEDS: LORazepam 1 MG TAB PO PRN ×2 (12:10→20:29)
[2017-10-12] MEDS: ARIPiprazole 30 MG TAB PO SCH (18:12)
[2017-10-12 18:15] LABS: AUTOMATED NEUTROPHIL # 3.1 TH/MM3 (1.8-7.7); BASOPHIL % 0.6 % (0.0-2.0); EOSINOPHIL # 0.1 TH/MM3 (0-0.4); EOSINOPHIL % 2.1 % (0.0-4.0); HEMATOCRIT 37.8 % (35.0-46.0); HEMOGLOBIN 12.5 GM/DL (11.6-15.3); LYMPH % 34.2 % (9.0-44.0); MEAN CELL VOLUME 84.5 FL (80.0-100.0); MEAN CORPUSCULAR HEMOGLOBIN 27.9 PG (27.0-34.0); MEAN PLATELET VOLUME 7.5 FL (7.0-11.0); MONO % 9.2 % (0.0-8.0); MONOCYTE # 0.5 TH/MM3 (0-0.9); NEUT % 53.9 % (16.0-70.0); PLATELET COUNT 305 TH/MM3 (150-450); RED BLOOD COUNT 4.47 MIL/MM3 (4.00-5.30); RED CELL DISTRIBUTION WIDTH 13.4 % (11.6-17.2); WHITE BLOOD COUNT 5.8 TH/MM3 (4.0-11.0)
[2017-10-12 18:24] VITALS: BP 140/76; PULSE 80; RESP 18; TEMP 98.6; O2SAT 97
[2017-10-12 18:46] LABS: ALBUMIN 3.7 GM/DL (3.4-5.0); ALT (GPT) 20 U/L (10-53); AST (GOT) 11 U/L (15-37); BICARBONATE 30.5 MEQ/L (21.0-32.0); BLOOD UREA NITROGEN 21 MG/DL (7-18); CALCIUM 8.8 MG/DL (8.5-10.1); CHLORIDE 104 MEQ/L (98-107); CREATININE 0.87 MG/DL (0.50-1.00); GLOMERULAR FILTRATION RATE 81 ML/MIN (>89); GLUCOSE,RANDOM 91 MG/DL (74-106); SODIUM (NA) 141 MEQ/L (136-145)
[2017-10-12 18:48] LABS: ALKALINE PHOSPHATASE 138 U/L (45-117); TOTAL BILIRUBIN ADULT 0.2 MG/DL (0.2-1.0); TOTAL PROTEIN 8.5 GM/DL (6.4-8.2)
[2017-10-12] MEDS: diphenhydrAMINE HCL 50 MG CAP PO PRN (20:21)
[2017-10-13 05:44] VITALS: BP 129/62; PULSE 76; RESP 17; TEMP 98.3; O2SAT 97
[2017-10-13 05:45] VITALS: BP 111/51; PULSE 78; RESP 18; TEMP 98.5; O2SAT 98
[2017-10-13] MEDS: ACYCLOVIR 200 MG CAP PO SCH ×3 (06:30→20:29)
[2017-10-13] MEDS: ACETAMINOPHEN 325 MG TAB PO PRN ×2 (06:51→20:30)
[2017-10-13] MEDS: FLUoxetine HCL 10 MG CAP PO SCH (08:34)
[2017-10-13] MEDS: NYSTATIN 100,000 U/GM PWD 15 GM BTL TOPICAL SCH ×2 (11:11→20:30)
[2017-10-13] MEDS: LORazepam 1 MG TAB PO PRN ×2 (13:45→19:40)
--- NOTE | 2017-10-13 14:14 | HHI.PYPN ---
Subjective Chief Complaint: Psychosis Remarks Patient seen and examined. Chart reviewed. Case discussed with nursing staff. On my examination today, patient is again more interactive. She does make eye contact today. She is frequently tearful and says this is because she needs to listen to gospel music. I offer to see if the rec therapist can obtain some music for her, but patient says this is insufficient and that she needs to listen to her own gospel music on her iTunes. She is in general more demanding and passive aggressive today. Noting her own tearfulness, she castigates me for prescribing her a "soccer mom antidepressant," implying that this is insufficient, even though she had asked for just such an agent yesterday. Psychoeducation provided regarding antidepressants. She is agreeable to titration of this agent. She is also quite perseverative on obtaining scheduled Ativan 2mg TID. I have explained that she has p.r.n. Ativan available. Patient says that if I will not prescribe her scheduled Ativan, she would like to see the mission planner so that she can be discharged soon, and I have notified counselor of her request. She denies SI/ HI today. No side effects from medications. No new physical complaints. She is requesting something other than Tylenol for musculoskeletal pain. Review of Systems ROS Limitations: Poor Historian Except as stated in HPI: all other systems reviewed are Neg Mental Status Examination Appearance: Disheveled Consciousness: Alert Orientation: Person, Place (at least) Motor Activity: Other (no motor abnormalities noted) Speech: Unremarkable Language: Adequate Fund of Knowledge: Adequate Attention and Concentration: Adequate Mood: Other (dysphoric) Affect: Other (tearful at times) Thought Process & Associations: Intact, Linear Thought Content: Appropriate Hallucination Type: None Delusion Type: None Suicidal Ideation: No Suicidal Plan: No Suicidal Intention: No Homicidal Ideation: No Homicidal Plan: No Homicidal Intention: No Insight: Poor Judgment: Poor Results Labs Test 10/12/17 17:44 White Blood Count 5.8 TH/MM3 Red Blood Count 4.47 MIL/MM3 Hemoglobin 12.5 GM/DL Hematocrit 37.8 % Mean Corpuscular Volume 84.5 FL Mean Corpuscular Hemoglobin 27.9 PG Mean Corpuscular Hemoglobin Concent 33.0 % Red Cell Distribution Width 13.4 % Platelet Count 305 TH/MM3 Mean Platelet Volume 7.5 FL Neutrophils (%) (Auto) 53.9 % Lymphocytes (%) (Auto) 34.2 % Monocytes (%) (Auto) 9.2 % Eosinophils (%) (Auto) 2.1 % Basophils (%) (Auto) 0.6 % Neutrophils # (Auto) 3.1 TH/MM3 Lymphocytes # (Auto) 2.0 TH/MM3 Monocytes # (Auto) 0.5 TH/MM3 Eosinophils # (Auto) 0.1 TH/MM3 Basophils # (Auto) 0.0 TH/MM3 CBC Comment DIFF FINAL Differential Comment Blood Urea Nitrogen 21 MG/DL Creatinine 0.87 MG/DL Random Glucose 91 MG/DL Total Protein 8.5 GM/DL Albumin 3.7 GM/DL Calcium Level 8.8 MG/DL Alkaline Phosphatase 138 U/L Aspartate Amino Transf (AST/SGOT) 11 U/L Alanine Aminotransferase (ALT/SGPT) 20 U/L Total Bilirubin 0.2 MG/DL Sodium Level 141 MEQ/L Potassium Level 3.9 MEQ/L Chloride Level 104 MEQ/L Carbon Dioxide Level 30.5 MEQ/L Anion Gap 7 MEQ/L Estimat Glomerular Filtration Rate 81 ML/MIN Labs reviewed. Anemia resolved. GFR stable. Alkaline phosphatase elevation stable. Vitals/IOs Vital Signs Date Time Temp Pulse Resp B/P (MAP) Pulse Ox O2 Delivery O2 Flow Rate FiO2 10/13/17 05:45 98.5 78 18 111/51 (71) 98 Assessment & Plan Problem List: (1) Psychosis ICD Codes: F29 - Unspecified psychosis not due to a substance or known physiological condition Status: Acute Assessment & Plan Some degree of manipulativeness noted in presentation today. Titrate Prozac to 20 mg daily. Continue Abilify as ordered. Ibuprofen as needed for musculoskeletal pain. Continue to monitor on the inpatient unit. Continue other medications and care as ordered. Justification for Cont. Inpt. Med changes. Discharge Planning Case discussed with counselor. Request HC Surrog/Guard Advoc?: No Problem Qualifiers (1) Psychosis: Qualified Codes: F28 - Other psychotic disorder not due to a substance or known physiological condition Brian Cleveland MD Oct 13, 2017 14:14
[2017-10-13] MEDS: ARIPiprazole 30 MG TAB PO SCH (16:58)
[2017-10-13 18:00] VITALS: BP 147/93; PULSE 91; RESP 18; TEMP 98.6; O2SAT 98
[2017-10-13] MEDS: diphenhydrAMINE HCL 50 MG CAP PO PRN (19:39)
[2017-10-13] MEDS: IBUPROFEN 600 MG TAB PO PRN (19:40)
[2017-10-14 05:33] VITALS: BP 124/61; PULSE 85; RESP 16; TEMP 97.6; O2SAT 97
[2017-10-14] MEDS: ACYCLOVIR 200 MG CAP PO SCH ×2 (06:21→14:24)
[2017-10-14] MEDS: IBUPROFEN 600 MG TAB PO PRN ×2 (06:23→18:34)
[2017-10-14] MEDS: LORazepam 1 MG TAB PO PRN ×3 (06:28→21:25)
[2017-10-14] MEDS: NYSTATIN 100,000 U/GM PWD 15 GM BTL TOPICAL SCH ×2 (09:00→21:27)
[2017-10-14] MEDS: FLUoxetine HCL 10 MG CAP PO SCH (09:21)
[2017-10-14] MEDS: ACETAMINOPHEN 325 MG TAB PO PRN (09:22)
--- NOTE | 2017-10-14 12:05 | HHI.PYPN ---
Subjective Chief Complaint: Psychosis Remarks Patient seen and examined with nurse. Chart reviewed. Case discussed with nursing staff. Per nurse, patient's behavior has been much more appropriate on the unit. She has been more visible on the unit and has been making calls. On my examination today, patient remains demanding and passive aggressive. She complains of generalized pain and perseverates on having been given "8 grams of morphine" by a pain management doctor outpatient. She also returns to her demand for Ativan. I try repeatedly to refocus our conversation to discuss her ongoing psychiatric symptoms, but she continues to perseverate on the controlled substances and exhausts the session time in so doing. The most I can obtain from her is that she still feels somewhat anxious. No mood or psychotic symptoms reported, and she denies suicidal ideation today. After our session she is somewhat intrusive and interrupts my rounds to try to discuss her case further. No side effects from medications. Complains of generalized pain but otherwise no physical complaints. Review of Systems ROS Limitations: Poor Historian Except as stated in HPI: all other systems reviewed are Neg Mental Status Examination Appearance: Appropriate Consciousness: Alert Orientation: x4 Motor Activity: Other (no abnormal motor movements noted. No nonverbal pain behaviors noted.) Speech: Unremarkable Language: Adequate Fund of Knowledge: Adequate Attention and Concentration: Adequate Memory: Unremarkable Mood: Other (Mildly dysphoric) Affect: Blunt Thought Process & Associations: Intact, Linear, Other (Perseverative as above) Thought Content: Appropriate Hallucination Type: None Delusion Type: None Suicidal Ideation: No Suicidal Plan: No Suicidal Intention: No Homicidal Ideation: No Homicidal Plan: No Homicidal Intention: No Insight: Fair Judgment: Adequate (fair)Poor Results Labs Labs reviewed. Vitals/IOs Vital Signs Date Time Temp Pulse Resp B/P (MAP) Pulse Ox O2 Delivery O2 Flow Rate FiO2 10/14/17 05:33 97.6 85 16 124/61 (82) 97 Intake and Output 10/14/17 10/14/17 10/15/17 08:00 16:00 00:00 Intake Total 240 ml Balance 240 ml Assessment & Plan Problem List: (1) Psychosis ICD Codes: F29 - Unspecified psychosis not due to a substance or known physiological condition Status: Acute Assessment & Plan Continue Abilify and Prozac as ordered. Could not engage patient in much of a discussion of med changes because of her perseveration on the controlled substances. I did suggest Maintena, but patient is not interested. Consult hospitalist for patient's complaints of generalized pain, although patient has no objective pain behaviors as I said. Continue to monitor on the inpatient unit. Continue other medications and care as ordered. Justification for Cont. Inpt. Final discharge planning Discharge Planning Possible discharge tomorrow, Wednesday Request HC Surrog/Guard Advoc?: No Problem Qualifiers (1) Psychosis: Qualified Codes: F28 - Other psychotic disorder not due to a substance or known physiological condition Brian Cleveland MD Oct 14, 2017 12:05
--- NOTE | 2017-10-14 17:09 | HHI.PR ---
Subjective Remarks This is a pleasant 57 y/o Female with Schizophrenia, hypertension, reconsult asked due to generalized pain the patient states she has low back pain after accident many years ago, also she needs knee and hip replacement, asked for Tylenol plus codeine. Seen in her bedroom with nurse Miss Joy cindy. Objective Vital Signs Date Time Temp Pulse Resp B/P (MAP) Pulse Ox O2 Delivery O2 Flow Rate FiO2 10/14/17 05:33 97.6 85 16 124/61 (82) 97 10/13/17 18:00 98.6 91 18 147/93 (111) 98 I/O 10/13/17 10/13/17 10/13/17 10/14/17 10/14/17 10/14/17 07:00 15:00 23:00 07:00 15:00 23:00 Intake Total 360 ml Balance 360 ml Intake Oral 360 ml Result Diagram: 10/12/17174310/12/171743 Imaging No new Imaging studies. Procedures None Other Results No new laboratory. Objective Remarks GENERAL: obesity in no distress. SKIN: No rashes, ecchymoses or lesions. Cool and dry. HEAD: Atraumatic. Normocephalic. No temporal or scalp tenderness. EYES: Pupils equal round and reactive. Extraocular motions intact. No scleral icterus. No injection or drainage. CARDIOVASCULAR: Regular rate and rhythm without murmurs, gallops, or rubs. RESPIRATORY: Clear to auscultation. no wheezing or crackles. Medications and IVs Current Medications Medications (Trade) Dose Ordered Sig/Shalom Route Start Time Stop Time Status Last Admin (Ativan) 1 mg Q6H PRN PO 10/05/17 17:00 Future hold 10/14/17 14:45 (Ativan Inj) 1 mg Q6H PRN IM 10/05/17 17:00 Future hold (Benadryl) 50 mg HS PRN PO 10/05/17 17:00 Future hold 10/13/17 19:39 (Benadryl Inj) 50 mg HS PRN IM 10/05/17 17:00 Future hold (Tylenol) 650 mg Q4H PRN PO 10/05/17 17:00 10/14/17 09:22 (Milk Of Magnesia Liq) 30 ml DAILY PRN PO 10/05/17 17:00 (Mag-Al Plus Susp Liq) 30 ml Q6H PRN PO 10/05/17 17:00 (Zovirax) 400 mg Q8HR PO 10/06/17 10:30 10/14/17 14:24 (Mycostatin Powder) 1 applic Q12HR TOPICAL 10/06/17 21:00 10/14/17 09:00 (Pill Splitter) 1 ea UNSCH PRN OTHER 10/07/17 16:30 (Abilify) 30 mg DAILY@1800 PO 10/12/17 18:00 10/13/17 16:58 (PROzac) 20 mg DAILY PO 10/14/17 09:00 10/14/17 09:21 (Motrin) 600 mg Q8H PRN PO 10/13/17 15:45 10/14/17 06:23 A/P Assessment and Plan Schizophrenia Acute bizarre behavior with depressed mood Management per psychiatry Varicella zoster outbreak was on acyclovir 400 mg 3 times a day Yeast infection Nystatin powder twice a day History of hypertension Currently soft BP, 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 DVT prophylaxis: Encourage ambulation Code Status Full code Discussed Condition With Patient and nurse Miss Joy in the room Sign off the case. Discharge Planning Hospitalist cleared for discharge. Abilio Ribeiro MD Oct 14, 2017 17:09
[2017-10-14] MEDS: ARIPiprazole 30 MG TAB PO SCH (18:34)
[2017-10-14] MEDS: ACETAMINOPHEN 500 MG CPLT PO SCH (18:37)
[2017-10-14 18:45] VITALS: BP 149/85; PULSE 97; RESP 17; TEMP 98.1; O2SAT 96
[2017-10-14] MEDS: NAPROXEN SODIUM 550 MG TAB PO SCH (21:00)
[2017-10-14] MEDS: FAMOTIDINE 20 MG TAB PO SCH (21:25)
[2017-10-14] MEDS: METHOCARBAMOL 500 MG TAB PO SCH (21:27)
[2017-10-14] MEDS: diphenhydrAMINE HCL 50 MG CAP PO PRN (21:27)
[2017-10-15] MEDS: METHOCARBAMOL 500 MG TAB PO SCH ×3 (05:59→21:11)
[2017-10-15] MEDS: ACETAMINOPHEN 500 MG CPLT PO SCH ×4 (06:00→18:25)
[2017-10-15 06:12] VITALS: BP 107/52; PULSE 67; RESP 18; TEMP 97.4; O2SAT 98
[2017-10-15] MEDS: FLUoxetine HCL 10 MG CAP PO SCH (09:16)
[2017-10-15] MEDS: FAMOTIDINE 20 MG TAB PO SCH ×2 (09:16→21:11)
[2017-10-15] MEDS: NAPROXEN SODIUM 550 MG TAB PO SCH ×2 (09:16→21:11)
[2017-10-15] MEDS: NYSTATIN 100,000 U/GM PWD 15 GM BTL TOPICAL SCH ×2 (09:17→21:12)
--- NOTE | 2017-10-15 11:06 | HHI.PYPN ---
Subjective Chief Complaint: Psychosis Remarks Patient seen and examined with nurse. Chart reviewed. Pain complaints addressed by the hospitalist yesterday evening. Case discussed with nursing staff who reports that the patient is medication seeking and clock watching for meds. She is noted to be fairly demanding. Case discussed in treatment team. On my exam today, patient continues to complain of anxiety. Some hopeless feelings, no worthlessness or morbid guilt. She slept well overnight. Denies SI/HI. Still feels like there are "sabotagers" out to get her, but she seems significantly less distressed by this versus prior to admission. Remains med seeking for Ativan. Denies side effects from medications. We discuss med adjustments to target patient's ongoing symptoms including possible addition of a different antipsychotic or titration of her Prozac. Patient is agreeable to the latter. Complains of constipation, still moving bowels but stools difficult to pass. No physical complaints otherwise. Requesting hepatitis screening, notes a history of high risk behaviors in past. Review of Systems ROS Limitations: Psychotic Except as stated in HPI: all other systems reviewed are Neg Mental Status Examination Appearance: Appropriate Consciousness: Alert Orientation: x4 Motor Activity: Other (no motor abnormalities noted) Speech: Unremarkable Language: Adequate Fund of Knowledge: Adequate Attention and Concentration: Adequate Memory: Unremarkable Mood: Anxious Affect: Blunt Thought Process & Associations: Intact, Linear Thought Content: Delusional Hallucination Type: None Delusion Type: Paranoid Suicidal Ideation: No Suicidal Plan: No Suicidal Intention: No Homicidal Ideation: No Homicidal Plan: No Homicidal Intention: No Insight: Fair Judgment: Adequate (fair) Results Labs Labs reviewed. Vitals/IOs Vital Signs Date Time Temp Pulse Resp B/P (MAP) Pulse Ox O2 Delivery O2 Flow Rate FiO2 10/15/17 06:12 97.4 67 18 107/52 (70) 98 Assessment & Plan Problem List: (1) Psychosis ICD Codes: F29 - Unspecified psychosis not due to a substance or known physiological condition Status: Acute Assessment & Plan Titrate Prozac to 40 mg daily to target anxiety. Add Colace. Check a hepatitis panel per patient request. Continue to monitor on the inpatient unit. Continue other medications and care as ordered. Justification for Cont. Inpt. Med changes. Discharge Planning Possible Wednesday discharge. Request HC Surrog/Guard Advoc?: No Problem Qualifiers (1) Psychosis: Qualified Codes: F28 - Other psychotic disorder not due to a substance or known physiological condition Brian Cleveland MD Oct 15, 2017 11:06
[2017-10-15] MEDS: LORazepam 1 MG TAB PO PRN (13:09)
--- NOTE | 2017-10-15 14:43 | PD.TTN ---
Patient Problems 1. Discharge planning 2. Medication compliance 3. Knowledge deficit 4. Lack of coping skills Progress Toward Goals Provider Present: Dr. Manny Cleveland Provider Input: 10/15 Dr Cleveland states she will have her Prozac titrated over the weekend and anticipated discharge Wednesday10/12/2017 - Dr. cleveland reported the patient made vague statements such as "everything is fake", and "I want to go to the ocean and be with Fineses." Dr. Cleveland may initiate an anti-depressant. 10/08/17 patient is psychotic and not giving information and no family Psychiatric Counselors Present: Madison Kruger LCSW, Kavya Licona [facility] Psych Therapist Input: 10/15 patient is homeless and will be assisted with follow up and local resources when discharged , possibly Wednesday10/12/2017 - Counselor reported that I will investigate the patient's livng siituation. 10/08/17 patient has not given info yet Group Spec/RT/OT/HAYWOOD Present: MALCOM Bettencourt Group Spec/RT/OT/HAYWOOD Input: 10/15 limited interaction 10/12/2017 - Patient isolates to her room and will be encouraged to attend and participate in scheduled activities. 10/08 seclusive to room Discharge Plan SMA Counselor is attempting to contact family in an effort to plan a safe and appropriate discharge. Documentation Scribe: Kavya Licona [facility] Date Resolved: Oct 12, 2017 Madison Kruger LCSW Oct 15, 2017 14:43
[2017-10-15 18:00] VITALS: BP 167/74; PULSE 89; RESP 18; TEMP 98.6; O2SAT 97
[2017-10-15] MEDS: ARIPiprazole 30 MG TAB PO SCH (18:24)
[2017-10-15] MEDS: DOCUSATE SODIUM 100 MG CAP PO SCH (21:11)
[2017-10-15] MEDS: diphenhydrAMINE HCL 50 MG CAP PO PRN (21:23)
[2017-10-16] MEDS: METHOCARBAMOL 500 MG TAB PO SCH ×4 (05:42→22:22)
[2017-10-16] MEDS: ACETAMINOPHEN 500 MG CPLT PO SCH ×6 (05:42→23:52)
[2017-10-16 06:04] VITALS: BP 133/66; PULSE 78; RESP 16; TEMP 98.1; O2SAT 98
[2017-10-16] MEDS: NYSTATIN 100,000 U/GM PWD 15 GM BTL TOPICAL SCH ×2 (08:26→20:59)
[2017-10-16] MEDS: FAMOTIDINE 20 MG TAB PO SCH ×2 (08:26→20:59)
[2017-10-16] MEDS: FLUoxetine HCL 20 MG CAP PO SCH (08:26)
[2017-10-16] MEDS: NAPROXEN SODIUM 550 MG TAB PO SCH ×2 (08:26→20:59)
[2017-10-16] MEDS: DOCUSATE SODIUM 100 MG CAP PO SCH ×2 (08:26→20:59)
[2017-10-16] MEDS: LORazepam 1 MG TAB PO PRN ×2 (08:58→15:08)
--- NOTE | 2017-10-16 10:43 | HHI.PYPN ---
Subjective Chief Complaint: Psychosis Remarks Pt seen and discussed with staff. She has been withdrawn and seclusive, but has been compliant with medications without side effects. She remains somewhat paranoid and delusional and is fixated on somatic complaints (insisting that staff maybe covering up her risk of stroke) but has not had any behavioral problems. No SI/HI Mental Status Examination Appearance: Appropriate Consciousness: Alert Orientation: x4 Motor Activity: Other (no motor abnormalities noted) Speech: Unremarkable Language: Adequate Fund of Knowledge: Adequate Attention and Concentration: Adequate Memory: Unremarkable Mood: Anxious Affect: Blunt Thought Process & Associations: Intact, Linear Thought Content: Delusional Hallucination Type: None Delusion Type: Paranoid Suicidal Ideation: No Suicidal Plan: No Suicidal Intention: No Homicidal Ideation: No Homicidal Plan: No Homicidal Intention: No Insight: Fair Judgment: Impulsive (fair) Results Labs Test 10/16/17 08:55 Vitals/IOs Vital Signs Date Time Temp Pulse Resp B/P (MAP) Pulse Ox O2 Delivery O2 Flow Rate FiO2 10/16/17 06:04 98.1 78 16 133/66 (88) 98 Assessment & Plan Problem List: (1) Psychosis ICD Codes: F29 - Unspecified psychosis not due to a substance or known physiological condition Status: Acute Assessment & Plan Continue current tx plan. Estimated LOS: days Justification for Cont. Inpt. impairments in reality testing Request HC Surrog/Guard Advoc?: No Problem Qualifiers (1) Psychosis: Qualified Codes: F28 - Other psychotic disorder not due to a substance or known physiological condition Skye Huizar MD Oct 16, 2017 10:43
[2017-10-16 16:52] VITALS: BP 150/69; PULSE 92; RESP 16; TEMP 98.1; O2SAT 98
[2017-10-16] MEDS: ARIPiprazole 30 MG TAB PO SCH (17:59)
[2017-10-16] MEDS: diphenhydrAMINE HCL 50 MG CAP PO PRN (22:22)
[2017-10-17 06:15] VITALS: BP 109/75; PULSE 74; RESP 18; TEMP 98.2; O2SAT 99
[2017-10-17] MEDS: ACETAMINOPHEN 500 MG CPLT PO SCH ×4 (06:23→23:30)
[2017-10-17] MEDS: METHOCARBAMOL 500 MG TAB PO SCH ×3 (06:23→21:15)
[2017-10-17] MEDS: LORazepam 1 MG TAB PO PRN ×3 (07:52→21:40)
[2017-10-17] MEDS: NYSTATIN 100,000 U/GM PWD 15 GM BTL TOPICAL SCH ×2 (09:00→21:14)
[2017-10-17] MEDS: NAPROXEN SODIUM 550 MG TAB PO SCH ×2 (09:13→21:14)
[2017-10-17] MEDS: FAMOTIDINE 20 MG TAB PO SCH ×2 (09:14→21:15)
[2017-10-17] MEDS: DOCUSATE SODIUM 100 MG CAP PO SCH ×2 (09:14→21:14)
[2017-10-17] MEDS: FLUoxetine HCL 20 MG CAP PO SCH (09:14)
--- NOTE | 2017-10-17 14:32 | HHI.PYPN ---
Subjective Chief Complaint: Psychosis Remarks Pt seen and discussed with staff. She was agitated with RN last night prompting change in staff today. She accused RN of deliberately antagonizing her and beat on glass. Somatic delusions have increased. She has been labile and irritable today. She states that she has had a recurrence of genital herpes since acyclovir was stopped. She has been more irritable and anxious. . Mental Status Examination Appearance: Appropriate Consciousness: Alert Orientation: x4 Motor Activity: Other (no motor abnormalities noted) Speech: Unremarkable Language: Adequate Fund of Knowledge: Adequate Attention and Concentration: Adequate Memory: Unremarkable Mood: Anxious, Irritable Affect: Anxious Thought Process & Associations: Intact, Linear Thought Content: Delusional Hallucination Type: None Delusion Type: Paranoid Suicidal Ideation: No Suicidal Plan: No Suicidal Intention: No Homicidal Ideation: No Homicidal Plan: No Homicidal Intention: No Insight: Fair Judgment: Impulsive (fair) Results Vitals/IOs Vital Signs Date Time Temp Pulse Resp B/P (MAP) Pulse Ox O2 Delivery O2 Flow Rate FiO2 10/17/17 13:30 14 10/17/17 06:15 98.2 74 109/75 (86) 99 Assessment & Plan Problem List: (1) Psychosis ICD Codes: F29 - Unspecified psychosis not due to a substance or known physiological condition Status: Acute Assessment & Plan Continue current tx plan. Acyclovir 400mg Q8H for herpes outbreak Estimated LOS: days Justification for Cont. Inpt. risk of decompensation Request HC Surrog/Guard Advoc?: No Problem Qualifiers (1) Psychosis: Qualified Codes: F28 - Other psychotic disorder not due to a substance or known physiological condition Skye Huizar MD Oct 17, 2017 14:32
[2017-10-17] MEDS: ACYCLOVIR 200 MG CAP PO SCH ×2 (15:45→21:15)
[2017-10-17 18:02] VITALS: BP 164/79; PULSE 92; RESP 16; TEMP 97.7; O2SAT 98
[2017-10-17] MEDS: ARIPiprazole 30 MG TAB PO SCH (18:19)
[2017-10-17 20:27] VITALS: BP 157/77; PULSE 97
[2017-10-17] MEDS: diphenhydrAMINE HCL 50 MG CAP PO PRN (23:29)
[2017-10-18 05:45] VITALS: BP 136/60; PULSE 82; RESP 17; TEMP 97.9; O2SAT 98
[2017-10-18] MEDS: ACETAMINOPHEN 500 MG CPLT PO SCH ×2 (06:24→12:00)
[2017-10-18] MEDS: METHOCARBAMOL 500 MG TAB PO SCH ×2 (06:25→14:00)
[2017-10-18] MEDS: ACYCLOVIR 200 MG CAP PO SCH ×2 (06:25→14:00)
[2017-10-18] MEDS: DOCUSATE SODIUM 100 MG CAP PO SCH (08:45)
[2017-10-18] MEDS: NAPROXEN SODIUM 550 MG TAB PO SCH (08:45)
[2017-10-18] MEDS: FAMOTIDINE 20 MG TAB PO SCH (08:45)
[2017-10-18] MEDS: FLUoxetine HCL 20 MG CAP PO SCH (08:45)
[2017-10-18] MEDS: NYSTATIN 100,000 U/GM PWD 15 GM BTL TOPICAL SCH (08:45)
[2017-10-18 11:38] LABS: HEPATITIS B SURFACE ANTIGEN NEGATIVE (NEGATIVE)
[2017-10-18] MEDS: LORazepam 1 MG TAB PO PRN (12:02)
[2017-10-18] MEDS ORDERED: ABILIFY 400 MG IM ONE (12:15)
[2017-10-18] MEDS ORDERED: METH500T3 PO (12:17)
[2017-10-18] MEDS ORDERED: DOCU1CAP39 PO (12:17)
[2017-10-18] MEDS ORDERED: ARIP10IN IM (12:17)
[2017-10-18] MEDS ORDERED: NAPR5TAB5 PO (12:17)
[2017-10-18] MEDS ORDERED: ARIP1TAB15 PO (12:17)
[2017-10-18] MEDS ORDERED: FLUO20CA12 PO (12:17)
[2017-10-18] MEDS ORDERED: FAMO20TA2 PO (12:17)
[2017-10-18] MEDS ORDERED: ACYC200C66 PO (12:17)
--- NOTE | 2017-10-18 12:17 | HHI.DS ---
Psychiatry Discharge Summary Inpatient Psychiatric care?: Yes Advance Directive: No Reason Not Provided: refused Mental Health AdvanceDirective: No Health Care Proxy: No Admission Admission Date Oct 05, 2017 at 16:41 Admission Diagnosis: (1) Schizophrenia, paranoid type ICD Code: F20.0 - Paranoid schizophrenia Brief History 57-year-old female who presented voluntarily to the emergency department for evaluation. Patient's chief complaint at the time was "I came in to save my life. The sabotage years are trying to kill me. They told me to walk into a car." Patient is a very poor historian and obviously psychotic. She states that she lives in a parking lot behind a zoroastrianism, in [place]. She is oriented to time, place and date. This physician does not feel she is well oriented to situation. 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 How can you preach to fake people." When asked how she has food to eat the patient replies "God will provide." She admits to being from [place] and admits she was Lui acted there twice. However, she has virtually no insight into what this physician believes is a psychotic mental illness with both paranoid delusions and command auditory hallucinations. Patient denies a history of alcoholism and substance abuse. Her toxicology screen has not been done. Tobacco Use In Past 30 Days: No Tobacco Past 30 Days Alcohol Use: Never Hospital Course Patient was admitted to a locked, inpatient psychiatric unit. A general medical consultation was obtained, and the patient was medically cleared prior to discharge. Appropriate precautions were in place throughout patient's hospital stay. Patient was seen and examined on the unit by psychiatry and also visited by counselor. Psychotropic medications were adjusted. Patient was started on long-acting injectable Abilify Maintena. There was no evidence of any suicidality or homicidality on the inpatient unit. Patient was noted to be somewhat imperious, demanding and dictating of care. She was also noted to be medication seeking for controlled substances. She was adherent with medications. On the day of discharge: Patient seen and examined with nurse. Chart reviewed. I note patient was reportedly overheard on the phone talking about jumping off a bridge or walking into traffic. Case discussed with nursing staff who reports the patient was no significant behavioral problem overnight and seems much improved versus nurse's contact with patient earlier in the admission. On my examination today, the patient is requesting discharge from the inpatient psychiatric unit today. She denies any suicidal or homicidal ideation, intent or plan on direct questioning and contracts for safety. When I ask her about the telephone conversation overnight, the patient insists that she was merely telling the person on the other end of the line about the circumstances of her presentation here (i.e. she had been experiencing SI with these plans at admission, not now). She is future oriented. I can elicit no depressive or hypomanic/manic symptoms. She does complain of some ongoing anxiety, although this seems to be in service of requesting benzodiazepines. She denies any audiovisual hallucinations. I can elicit no delusional material. She denies side effects from medications. We discuss the R/B/A of Abilify Maintena and discuss the need for temporary oral supplementation with Abilify PO as well as the need for follow up injections. Suicide and violence risk assessment on day of discharge both suggest lower imminent risk, and the patient's level of function is adequate for outpatient care. She does not meet criteria for involuntary psychiatric hospitalization at this time and is requesting discharge from the inpatient psychiatric unit today. I have no basis to retain her on the inpatient unit over her objection. Patient will be discharged today with psychiatric follow-up as arranged by counselor. Patient is also to follow-up with primary care. I have counseled patient to return to psychiatric emergency room for any concerning psychiatric symptoms as part of the general safety plan. Results Blood Pressure 136 / 60 Vital Signs Date Time Temp Pulse Resp B/P (MAP) Pulse Ox O2 Delivery O2 Flow Rate FiO2 10/18/17 05:45 97.9 82 17 136/60 (85) 98 Laboratory Tests Test 10/16/17 08:55 Laboratory Results Test 10/06/17 18:57 Cholesterol Level 218 MG/DL (120-200) HDL Cholesterol 67.7 MG/DL (40.0-60.0) Hemoglobin A1c 6.2 % (4.3-6.0) LDL Cholesterol 134 MG/DL (0-99) Triglycerides Level 82 MG/DL (42-150) Summary of Procedures None done Imaging None done Pending results at discharge: No (Hepatitis panel was pending when I entered discharge order but has resulted now and is negative.) Medications # of Antipsychotic meds at D/C: 1 Approp Antipsych med options 1 - Minimum of three failed multiple trials of monotherapy. 2 - Documented plan to taper to monotherapy due to previous use of multiple meds OR cross-taper in progress at D/C. 3 - Documentation of augmentation of Clozapine. 4 - Justification other than those listed in allowable values 1-3, document here : Discharge Discharge Date: Oct 18, 2017 Discharge Diagnosis: (1) Schizophrenia, paranoid type Diagnosis: Principal (stabilized) ICD Code: F20.0 - Paranoid schizophrenia Pt Condition on Discharge: Stable Discharge Disposition: Discharge Home Discharge Instructions Diet Instructions: Diabetic Diet Activities you can perform: Weight Bearing as Yadira Scheduled Appointment: Lam Vilchis Appointment Date: Oct 18, 2017 Appointment Time: 07:30am New Orders: COMP MET PROF (CMP) - 1 Week New Medications: Aripiprazole Maintena Dual Chamber Inj (Abilify Maintena Dual Chamber Inj) 400 Mg Inj 400 MG IM Q28D for Mental Health, #1 SYRINGE 0 Refills This dose of Abilify Maintena is due on 11/15/17. Acyclovir (Acyclovir) 200 Mg Cap 400 MG PO Q8HR for Health for 15 Days, CAP 1 Refill Aripiprazole (Aripiprazole) 30 Mg Tab 30 MG PO DAILY@1800 for Mental Health for 14 Days, TAB 0 Refills Taker oral Abilify for 2 weeks and then stop. Be sure to get your next Abilify Maintena injection. Docusate Sodium (Dok) 100 Mg Cap 100 MG PO BID for Constipation for 15 Days, #30 CAP 1 Refill Famotidine (Famotidine) 20 Mg Tab 20 MG PO BID for Health for 15 Days, #30 TAB 1 Refill Fluoxetine (Fluoxetine) 20 Mg Capsule 40 MG PO DAILY for Mental Health for 15 Days, #30 CAP 1 Refill Methocarbamol (Methocarbamol) 500 Mg Tab 500 MG PO Q8HR for Health for 15 Days, TAB 1 Refill Naproxen Sodium DS (Anaprox DS) 550 Mg Tab 550 MG PO BID for Health for 15 Days, #30 TAB 1 Refill [Nystatin Powder] () 15 APPLIC/15 GM POWD 1 APPLIC TOPICAL Q12HR for Health for 15 Days, 1 Refill Discharge Time > 30 minutes Mental Status Examination Appearance: Appropriate Consciousness: Alert Orientation: x4 Motor Activity: Normal gait, Other (no abnormal motor movements noted) Speech: Unremarkable Language: Adequate Fund of Knowledge: Adequate Attention and Concentration: Adequate Memory: Unremarkable Mood: Anxious (mild) Affect: Appropriate Thought Process & Associations: Intact, Linear Thought Content: Appropriate Hallucination Type: None Delusion Type: None Suicidal Ideation: No Suicidal Plan: No Suicidal Intention: No Homicidal Ideation: No Homicidal Plan: No Homicidal Intention: No Insight: Fair Judgment: Adequate (fair) Discharge/Advance Care Plan Health Problems: (1) Psychosis Goals to promote your health * To prevent worsening of your condition and complications * To maintain your health at the optimal level Directions to meet your goals Take your medications as prescribed Follow your dietary instruction Follow activity as directed Keep your appointments as scheduled Take your immunizations and boosters as scheduled If your symptoms worsen call your PCP, if no PCP go to Urgent Care Center or Emergency Room For 12/04 questions related to your inpatient stay or results of tests pending at discharge, please contact Dr. Brian Cleveland at Smoking is Dangerous to Your Health. Avoid second hand smoking Brian Cleveland MD Oct 18, 2017 12:17
[2017-10-18] MEDS ORDERED: Nystatin Powder TOPICAL (12:19)
[2017-10-18 13:46] LABS: HEPATITIS A AB IGM NEGATIVE (NEGATIVE); HEPATITIS B CORE AB IGM NEGATIVE (NEGATIVE); HEPATITIS C AB IgG NEGATIVE (NEGATIVE)
== END 2017-10-18 14:35 | disposition home or self-care (01) | DRG 885 ==
LOC: NEPJ 14:39 → NEDA 16:41 → H260 18:09
PROVIDERS: ADMIT Psychiatry & Neurology Psychiatry; ATTEND Psychiatry & Neurology Psychiatry
DX: F20.0 Paranoid schizophrenia (principal); I10 Essential (primary) hypertension; B02.9 Zoster without complications; B37.9 Candidiasis, unspecified; M47.9 Spondylosis, unspecified; E78.5 Hyperlipidemia, unspecified; Z59.0 Homelessness; E87.6 Hypokalemia; M17.0 Bilateral primary osteoarthritis of knee; M16.0 Bilateral primary osteoarthritis of hip; Z83.3 Family history of diabetes mellitus
CPT/HCPCS: 80053; 80061; 80074; 80307; 81001; 82306; 82607; 83036; 84443; 85025; 93005; Q0163

== ENCOUNTER 2017-11-02 10:01 | Emergency (ER) | payer OTHER ==
[~2017-11-02] VITALS: Ht 160 cm; Wt 86.5 kg
[~2017-11-02 10:01] MED LIST changes: +ACYC200C66 PO; +ARIP10IN IM; +ARIP1TAB15 PO; -CEPH500C3 PO; +DOCU1CAP39 PO; +FAMO20TA2 PO; +FLUO20CA12 PO; +METH500T3 PO; +NAPR5TAB5 PO; +Nystatin Powder TOPICAL; -PRED20 PO
[2017-11-02 10:24] VITALS: BP 200/91; PULSE 80; RESP 18; TEMP 98.8; O2SAT 99
[2017-11-02] MEDS ORDERED: MORPHINE SULFATE 4 MG/ML INJ IV PUSH ONE (11:00)
[2017-11-02] MEDS ORDERED: SODIUM CHLORIDE 0.9% FLUSH 10 ML FLUSH IVF PRN (11:00)
[2017-11-02] MEDS ORDERED: SODIUM CHLORID 0.9% 500 ML INJ 500 ML IV ONE (11:00)
[2017-11-02] MEDS ORDERED: hydrALAZINE HCL 20 MG/ML VIAL IV PUSH ONE (11:00)
[2017-11-02 11:09] VITALS: O2SAT 95
[2017-11-02] MEDS ORDERED: METF500T PO (11:09)
[2017-11-02] MEDS ORDERED: FLUT1SPR5 EACH NARE (11:09)
[2017-11-02] MEDS ORDERED: LOSA100T PO ×2 (11:09→13:44)
[2017-11-02 11:12] VITALS: BP 167/82; PULSE 87; RESP 16; O2SAT 98
--- NOTE | 2017-11-02 11:16 | PD ---
HPI Chief Complaint: Hypertension Time Seen by Provider: 10:45 Travel History International Travel<30 days: No Contact w/Intl Traveler<30days: No Traveled to known affect area: No History of Present Illness HPI 57-year-old -[place] female presents emergency department with concern over her high blood pressure and sugars. Patient is homeless and concerned that she has had to take increased doses of her losartan 100 mg as well as increase her metformin 500 mg to twice daily. Patient today states her blood pressure was elevated when she had it checked at a local fire station, and she noted a headache which she describes as 6 out of 10. Patient denies any other neurological symptoms. Patient currently has no primary care physician since becoming homeless proximally 3 months ago. PFSH Past Medical History Anxiety: Yes Depression: Yes Cancer: No Cardiovascular Problems: Yes (per patient murmur) High Cholesterol: Yes Diabetes: Yes Patient Takes Glucophage: Yes Endocrine: No Headaches: No Hypertension: Yes Immune Disorder: No Psychiatric: Yes (Patient poor historian cannot determine.) Seizures: No Tetanus Vaccination: Unknown Influenza Vaccination: No ?: Not Ovarian Cysts: Yes Past Surgical History Other Surgery: Yes (both wrists) Social History Alcohol Use: No Tobacco Use: No Substance Use: No Allergies-Medications (Allergen,Severity, Reaction): Coded Allergies: No Known Allergies (Unverified Allergy, Unknown, 10/05/17) Reported Meds & Prescriptions Reported Meds & Active Scripts Active Losartan (Losartan Potassium) 100 Mg Tab 100 Mg PO DAILY Glucophage (Metformin HCl) 500 Mg Tab 500 Mg PO BIDPC Hydrochlorothiazide 25 Mg Tab 25 Mg PO DAILY Abilify Maintena Dual Chamber Inj (Aripiprazole) 400 Mg Inj 400 Mg IM Q28D This dose of Abilify Maintena is due on 11/15/17. Famotidine 20 Mg Tab 20 Mg PO BID 15 Days Dok (Docusate Sodium) 100 Mg Cap 100 Mg PO BID 15 Days Aripiprazole 30 Mg Tab 30 Mg PO DAILY@1800 14 Days Taker oral Abilify for 2 weeks and then stop. Be sure to get your next Abilify Maintena injection. Fluoxetine (Fluoxetine HCl) 20 Mg Capsule 40 Mg PO DAILY 15 Days Methocarbamol 500 Mg Tab 500 Mg PO Q8HR 15 Days Acyclovir 200 Mg Cap 400 Mg PO Q8HR 15 Days Reported Flonase Nasal [place] (Fluticasone Nasal [place]) 50 Mcg/Act [place] 50 Mcg EACH NARE DAILY Losartan (Losartan Potassium) 100 Mg Tab 100 Mg PO DAILY Metformin (Metformin HCl) 500 Mg Tab 500 Mg PO DAILY With a meal Physical Exam Narrative GENERAL: Patient is in no acute distress. SKIN: Warm and dry. HEAD: Atraumatic. Normocephalic. EYES: Pupils equal and round. No scleral icterus. No injection or drainage. ENT: No nasal bleeding or discharge. Mucous membranes pink and moist. Normal color. Normal turgor. NECK: Trachea midline. Supple and nontender CARDIOVASCULAR: Regular rate and rhythm. RESPIRATORY: No accessory muscle use. Clear to auscultation. Breath sounds equal bilaterally. GASTROINTESTINAL: Abdomen soft, non-tender, nondistended. Hepatic and splenic margins not palpable. MUSCULOSKELETAL: Extremities without clubbing, cyanosis, or edema. No obvious deformities. NEUROLOGICAL: Awake and alert. No obvious cranial nerve deficits. Motor grossly within normal limits. Five out of 5 muscle strength in the arms and legs. Normal speech. PSYCHIATRIC: Appropriate mood and affect; insight and judgment normal. Data Data Last Documented VS Vital Signs Date Time Temp Pulse Resp B/P (MAP) Pulse Ox O2 Delivery O2 Flow Rate FiO2 11/02/17 11:49 85 14 154/72 (99) 98 Room Air 11/02/17 10:24 98.8 Orders Orders Electrocardiogram (11/02/17 10:50) Ckmb (Isoenzyme) Profile (11/02/17 10:50) Complete Blood Count With Diff (11/02/17 10:50) Comprehensive Metabolic Panel (11/02/17 10:50) Magnesium (Mg) (11/02/17 10:50) Prothrombin Time / Inr (Pt) (11/02/17 10:50) Act Partial Throm Time (Ptt) (11/02/17 10:50) Troponin I (11/02/17 10:50) Chest, Single Ap (11/02/17 10:50) Ecg Monitoring (11/02/17 10:50) Iv Access Insert/Monitor (11/02/17 10:50) Oximetry (11/02/17 10:50) Morphine Inj (Morphine Inj) (11/02/17 11:00) Sodium Chloride 0.9% Flush (Ns Flush) (11/02/17 11:00) Sodium Chlorid 0.9% 500 Ml Inj (Ns 500 M (11/02/17 11:00) Hydralazine Inj (Apresoline Inj) (11/02/17 11:00) CKMB (11/02/17 11:00) CKMB% (11/02/17 11:00) Ed Discharge Order (11/02/17 12:51) Labs Laboratory Tests Test 11/02/17 11:00 White Blood Count 5.6 TH/MM3 Red Blood Count 3.90 MIL/MM3 Hemoglobin 10.9 GM/DL Hematocrit 32.9 % Mean Corpuscular Volume 84.4 FL Mean Corpuscular Hemoglobin 27.8 PG Mean Corpuscular Hemoglobin Concent 33.0 % Red Cell Distribution Width 13.3 % Platelet Count 289 TH/MM3 Mean Platelet Volume 6.8 FL Neutrophils (%) (Auto) 59.5 % Lymphocytes (%) (Auto) 29.0 % Monocytes (%) (Auto) 8.0 % Eosinophils (%) (Auto) 2.9 % Basophils (%) (Auto) 0.6 % Neutrophils # (Auto) 3.3 TH/MM3 Lymphocytes # (Auto) 1.6 TH/MM3 Monocytes # (Auto) 0.4 TH/MM3 Eosinophils # (Auto) 0.2 TH/MM3 Basophils # (Auto) 0.0 TH/MM3 CBC Comment DIFF FINAL Differential Comment Prothrombin Time 11.0 SEC Prothromb Time International Ratio 1.1 RATIO Activated Partial Thromboplast Time 24.5 SEC Blood Urea Nitrogen 14 MG/DL Creatinine 0.71 MG/DL Random Glucose 107 MG/DL Total Protein 7.6 GM/DL Albumin 3.4 GM/DL Calcium Level 8.4 MG/DL Magnesium Level 2.3 MG/DL Alkaline Phosphatase 123 U/L Aspartate Amino Transf (AST/SGOT) 15 U/L Alanine Aminotransferase (ALT/SGPT) 21 U/L Total Bilirubin 0.2 MG/DL Sodium Level 137 MEQ/L Potassium Level 3.7 MEQ/L Chloride Level 106 MEQ/L Carbon Dioxide Level 25.3 MEQ/L Anion Gap 6 MEQ/L Estimat Glomerular Filtration Rate 103 ML/MIN Total Creatine Kinase 135 U/L Creatine Kinase MB 1.3 NG/ML Troponin I LESS THAN 0.02 NG/ML MDM Medical Decision Making Medical Screen Exam Complete: Yes Emergency Medical Condition: Yes Medical Record Reviewed: Yes Differential Diagnosis Hypertensive urgency. Electrolyte imbalance. Headache. Need for medication. Need for primary care physician. Narrative Course Patient appears medically stable at time of exam. EKG is ordered showing normal sinus rhythm without significant ST changes. IV access was obtained and the patient is given 20 mg hydralazine, and 200 mg morphine IV Labs ordered including CBC, CMP, and cardiac panel. CBC is unremarkable except for hemoglobin of 10.9, hematocrit 32.9 Coagulation studies are normal. CMP unremarkable except for random glucose of 107, calcium is 8.4, alk phos is 123, first troponin is less than 0.02. Patient blood pressure is improved at recheck, and headache is improved. Patient is given a refill of her losartan 100 mg daily. #30. She is started on hydrochlorothiazide 25 mg daily #30. Patient should continue on her Glucophage 500 mg twice daily #60 Patient is referred to [facility] for further evaluation and primary care treatment. Diagnosis Primary Impression: HTN (hypertension) Qualified Codes: I10 - Essential (primary) hypertension Additional Impression: Diabetes Referrals: [facility] call for appointment Patient Instructions: General Instructions Additional Instructions: CBC is unremarkable except for hemoglobin of 10.9, hematocrit 32.9 Coagulation studies are normal. CMP unremarkable except for random glucose of 107, calcium is 8.4, alk phos is 123, first troponin is less than 0.02. Patient blood pressure is improved at recheck, and headache is improved. Patient is given a refill of her losartan 100 mg daily. #30. She is started on hydrochlorothiazide 25 mg daily #30. Patient should continue on her Glucophage 500 mg twice daily #60 Patient is referred to [facility] for further evaluation and primary care treatment. Med/Other Pt SpecificInfo: Prescription(s) given Scripts Losartan (Losartan) 100 Mg Tab 100 MG PO DAILY for Blood Pressure Management, #30 TAB 0 Refills Prov: Gracia Chicas MD 11/02/17 Metformin (Glucophage) 500 Mg Tab 500 MG PO BIDPC for Blood Sugar Management, #60 TAB 0 Refills Prov: Gracia Chicas MD 11/02/17 Hydrochlorothiazide (Hydrochlorothiazide) 25 Mg Tab 25 MG PO DAILY, #30 TAB 0 Refills Prov: Gracia Chicas MD 11/02/17 Disposition: 01 DISCHARGE HOME Condition: Stable Thuan Nichols Nov 02, 2017 11:16
[2017-11-02 11:18] LABS: AUTOMATED NEUTROPHIL # 3.3 TH/MM3 (1.8-7.7); BASOPHIL % 0.6 % (0.0-2.0); EOSINOPHIL # 0.2 TH/MM3 (0-0.4); EOSINOPHIL % 2.9 % (0.0-4.0); HEMATOCRIT 32.9 % (35.0-46.0); HEMOGLOBIN 10.9 GM/DL (11.6-15.3); LYMPHOCYTE # 1.6 TH/MM3 (1.0-4.8); MEAN CELL VOLUME 84.4 FL (80.0-100.0); MEAN CORPUSCULAR HEMOGLOBIN 27.8 PG (27.0-34.0); MEAN PLATELET VOLUME 6.8 FL (7.0-11.0); MONOCYTE # 0.4 TH/MM3 (0-0.9); NEUT % 59.5 % (16.0-70.0); PLATELET COUNT 289 TH/MM3 (150-450); RED CELL DISTRIBUTION WIDTH 13.3 % (11.6-17.2); WHITE BLOOD COUNT 5.6 TH/MM3 (4.0-11.0)
--- NOTE | 2017-11-02 11:21 | RADRPT ---
EXAM DATE/TIME: 11/02/2017 10:56 [facility] COMPARISON: CHEST SINGLE AP, May 23, 2016, 9:39. INDICATIONS : Shortness of breath. MEDICAL HISTORY : Hypercholesterolemia. Hypertension SURGICAL HISTORY : None. ENCOUNTER: Initial ACUITY: 1 day PAIN SCORE: 0/10 LOCATION: Bilateral chest FINDINGS: A single view of the chest demonstrates the lungs to be symmetrically aerated without evidence of mas s, infiltrate or effusion. The cardiomediastinal contours are unremarkable. Osseous structures are intact. CONCLUSION: Normal examination. Edward Shafer Jr., MD on November 02, 2017 at 11:14 Board Certified Radiologist. This report was verified electronically.
[2017-11-02 11:35] LABS: INTERNATIONAL NORMALIZED RATIO 1.1 RATIO
[2017-11-02 11:43] LABS: ALKALINE PHOSPHATASE 123 U/L (45-117); TOTAL BILIRUBIN ADULT 0.2 MG/DL (0.2-1.0); TOTAL PROTEIN 7.6 GM/DL (6.4-8.2); TROPONIN I LESS THAN 0.02 NG/ML (0.02-0.05)
[2017-11-02 11:49] VITALS: BP 154/72; PULSE 85; RESP 14; O2SAT 98
--- NOTE | 2017-11-02 12:02 | PD ---
Physical Exam Date Seen by Provider: Nov 02, 2017 Narrative She presents to us by rescue with the chief complaint blood pressure. She has a headache but no neurological symptoms to suggest encephalopathy. She reports an episode of chest pain a couple days ago. Data Data Last Documented VS Vital Signs Date Time Temp Pulse Resp B/P (MAP) Pulse Ox O2 Delivery O2 Flow Rate FiO2 11/02/17 11:49 85 14 154/72 (99) 98 Room Air 11/02/17 10:24 98.8 Orders Orders Electrocardiogram (11/02/17 10:50) Ckmb (Isoenzyme) Profile (11/02/17 10:50) Complete Blood Count With Diff (11/02/17 10:50) Comprehensive Metabolic Panel (11/02/17 10:50) Magnesium (Mg) (11/02/17 10:50) Prothrombin Time / Inr (Pt) (11/02/17 10:50) Act Partial Throm Time (Ptt) (11/02/17 10:50) Troponin I (11/02/17 10:50) Chest, Single Ap (11/02/17 10:50) Ecg Monitoring (11/02/17 10:50) Iv Access Insert/Monitor (11/02/17 10:50) Oximetry (11/02/17 10:50) Morphine Inj (Morphine Inj) (11/02/17 11:00) Sodium Chloride 0.9% Flush (Ns Flush) (11/02/17 11:00) Sodium Chlorid 0.9% 500 Ml Inj (Ns 500 M (11/02/17 11:00) Hydralazine Inj (Apresoline Inj) (11/02/17 11:00) CKMB (11/02/17 11:00) CKMB% (11/02/17 11:00) Labs Laboratory Tests Test 11/02/17 11:00 White Blood Count 5.6 TH/MM3 Red Blood Count 3.90 MIL/MM3 Hemoglobin 10.9 GM/DL Hematocrit 32.9 % Mean Corpuscular Volume 84.4 FL Mean Corpuscular Hemoglobin 27.8 PG Mean Corpuscular Hemoglobin Concent 33.0 % Red Cell Distribution Width 13.3 % Platelet Count 289 TH/MM3 Mean Platelet Volume 6.8 FL Neutrophils (%) (Auto) 59.5 % Lymphocytes (%) (Auto) 29.0 % Monocytes (%) (Auto) 8.0 % Eosinophils (%) (Auto) 2.9 % Basophils (%) (Auto) 0.6 % Neutrophils # (Auto) 3.3 TH/MM3 Lymphocytes # (Auto) 1.6 TH/MM3 Monocytes # (Auto) 0.4 TH/MM3 Eosinophils # (Auto) 0.2 TH/MM3 Basophils # (Auto) 0.0 TH/MM3 CBC Comment DIFF FINAL Differential Comment Prothrombin Time 11.0 SEC Prothromb Time International Ratio 1.1 RATIO Activated Partial Thromboplast Time 24.5 SEC Total Protein 7.6 GM/DL Alkaline Phosphatase 123 U/L Total Bilirubin 0.2 MG/DL Total Creatine Kinase 135 U/L Creatine Kinase MB 1.3 NG/ML Troponin I LESS THAN 0.02 NG/ML MDM Supervised Visit with [place]: Yes Interpretation(s) EKG shows a normal sinus rhythm with no acute ischemic changes Differential Diagnosis My differential diagnosis of high blood pressure includes but is not limited to "white coat syndrome," anxiety, essential hypertension, hypertensive emergency. Narrative Course I, Dr. Chicas, have reviewed the advance practice practitioner's documentation and am in agreement, met with the patient face to face, made the diagnosis, and the medical decision making was done by me. *My assessment and Findings: This patient presents with the chief complaint of high blood pressure. She has no signs or symptoms of hypertensive emergency. Please see Cecil Nichols PA-C's note for results of laboratory and radiographic evaluation, ED course, final diagnosis and disposition Gracia Chicas MD Nov 02, 2017 12:02
[2017-11-02 12:04] LABS: ALBUMIN 3.4 GM/DL (3.4-5.0); ALT (GPT) 21 U/L (10-53); AST (GOT) 15 U/L (15-37); BICARBONATE 25.3 MEQ/L (21.0-32.0); BLOOD UREA NITROGEN 14 MG/DL (7-18); CALCIUM 8.4 MG/DL (8.5-10.1); CHLORIDE 106 MEQ/L (98-107); CREATININE 0.71 MG/DL (0.50-1.00); GLOMERULAR FILTRATION RATE 103 ML/MIN (>89); GLUCOSE,RANDOM 107 MG/DL (74-106); MAGNESIUM 2.3 MG/DL (1.5-2.5); SODIUM (NA) 137 MEQ/L (136-145)
[2017-11-02] MEDS ORDERED: HYDR25TA5 PO (12:51)
[2017-11-02] MEDS ORDERED: VALS1TAB65 PO (12:51)
[2017-11-02] MEDS ORDERED: METF500 PO (12:51)
[2017-11-02 13:45] VITALS: BP 174/91; PULSE 89; RESP 16; O2SAT 99
--- NOTE | 2017-11-02 19:18 | EKG ---
Date Performed: 11/02/2017 Time Performed: 10:49:40 PTAGE: 57 years EKG: Sinus rhythm NORMAL ECG Since the prior tracing, there has been no significant change PREVIOUS TRACING : 10/08/2017 @1446 DOCTOR: Tk Oilveros Interpretating Date/Time 11/02/2017 19:28:22
== END 2017-11-02 13:58 | disposition home or self-care (01) ==
LOC: NEPD 10:01
DX: I10 Essential (primary) hypertension (principal); E11.9 Type 2 diabetes mellitus without complications; F32.9 Major depressive disorder, single episode, unspecified; E78.00 Pure hypercholesterolemia, unspecified; Z79.84 Long term (current) use of oral hypoglycemic drugs; Z79.899 Other long term (current) drug therapy; Z59.0 Homelessness
CPT/HCPCS: 71045; 80053; 82550; 82552; 83735; 84484; 85025; 85610; 85730; 93005; 96374; 96375; 99284; J0360; J2270; J7040

== ENCOUNTER 2018-03-14 09:51 | Day surgery (SDC) | payer OTHER ==
[~2018-03-14] VITALS: Ht 160 cm; Wt 94.7 kg
[~2018-03-14 09:51] MED LIST changes: +FLUT1SPR5 EACH NARE; +HYDR25TA5 PO; +LOSA100T PO; +METF500 PO; +METF500T PO; -NAPR5TAB5 PO; -Nystatin Powder TOPICAL
[2018-03-14] MEDS ORDERED: IOHEXOL 350 MG/ML 50 ML BTL (for Cath Lab) OTHER ONE (09:52)
[2018-03-14 10:30] LABS: AUTOMATED NEUTROPHIL # 4.2 TH/MM3 (1.8-7.7); BASOPHIL # 0.1 TH/MM3 (0-0.2); BASOPHIL % 1.1 % (0.0-2.0); EOSINOPHIL # 0.2 TH/MM3 (0-0.4); EOSINOPHIL % 3.1 % (0.0-4.0); HEMATOCRIT 36.2 % (35.0-46.0); HEMOGLOBIN 11.9 GM/DL (11.6-15.3); LYMPHOCYTE # 1.5 TH/MM3 (1.0-4.8); MEAN CELL VOLUME 85.2 FL (80.0-100.0); MEAN CORPUSCULAR HEMOGLOBIN 27.9 PG (27.0-34.0); MEAN CORPUSCULAR HGB CONC 32.7 % (32.0-36.0); MEAN PLATELET VOLUME 7.4 FL (7.0-11.0); MONO % 10.3 % (0.0-8.0); MONOCYTE # 0.7 TH/MM3 (0-0.9); NEUT % 63.5 % (16.0-70.0); PLATELET COUNT 324 TH/MM3 (150-450); RED BLOOD COUNT 4.25 MIL/MM3 (4.00-5.30); RED CELL DISTRIBUTION WIDTH 14.1 % (11.6-17.2); WHITE BLOOD COUNT 6.6 TH/MM3 (4.0-11.0)
[2018-03-14] MEDS ORDERED: LORA0.5T PO (10:30)
[2018-03-14] MEDS ORDERED: OXYB5TAB8 PO (10:30)
[2018-03-14] MEDS ORDERED: ATOR10TA15 PO (10:30)
[2018-03-14 10:44] LABS: INTERNATIONAL NORMALIZED RATIO 1.1 RATIO; PROTHROMBIN TIME - PATIENT 10.7 SEC (9.8-11.6)
[2018-03-14] MEDS ORDERED: HEPARIN SODIUM - IV 10,000 UNITS/10 ML VIAL ONE (10:47)
[2018-03-14] MEDS ORDERED: HEPARIN-NS/PF INJ 500 ML ONE (10:47)
[2018-03-14] MEDS ORDERED: MIDAZOLAM HCL 2 MG/2 ML VIAL ONE (10:47)
[2018-03-14 10:49] LABS: BICARBONATE 23.7 MEQ/L (21.0-32.0); CALCIUM 8.9 MG/DL (8.5-10.1); CREATININE 0.92 MG/DL (0.50-1.00)
[2018-03-14] MEDS ORDERED: NITROGLYCERIN INJ 5 ML ONE (10:55)
[2018-03-14] MEDS ORDERED: VERAPAMIL HCL 5 MG/2 ML VIAL ONE (10:55)
--- NOTE | 2018-03-14 11:37 | MA ---
cc: Hammad Manley MD DATE: 03/14/2018 INDICATIONS FOR PROCEDURE: Episodes of chest pain, abnormal stress test versus ischemia in a 57-year-old female. PROCEDURES: Left heart catheterization, angiogram. PROCEDURE: After obtaining informed consent, the patient in the fasting state, brought to the powerhouse laborer. The right radial artery was sterilized and draped with sterile drapes. 1% Xylocaine used to locally anesthetize the area. A 6-[place] sheath was used to access the right radial artery. Ingalls catheter used to intubate the left main and intubate the right coronary artery. No left ventriculogram was performed. At the end of the procedure, TR band applied. Sheath was taken out and she was sent back to her room in stable condition with no complications. CORONARY ANGIOGRAM: The left main coronary artery is a medium size vessel that bifurcates in the LAD and left circumflex coronary artery. Left main has no significant disease. Left anterior descending coronary artery, one of the views has about 50 percent in the midsegment. Circumflex and its branches with no significant disease. Right coronary artery is small, possibly codominant with a midsegment about 40-50 percent. Medical management to continue. Sent back to her room in stable condition. No complications. POSTOPERATIVE DIAGNOSIS: 1. 40-50 percent mid LAD. 2. 40/50 percent mid right coronary artery. Hammad Manley MD THONG/DL , 11:18 AM , 11:35 AM
[2018-03-14] MEDS ORDERED: SODIUM CHLOR 0.9% 1000 ML INJ 400 ML IV ONE (12:00)
--- NOTE | 2018-03-14 13:39 | CATHPROC ---
[facility]rats HIS Report Study Information Study Number Admission Scheduled Start Study Start [id number] Mar 14 2018 9:51AM 03/14/2018 Mar 14 2018 10:21AM [place] [facility] Cardiac Catheterization Admit Source Facility Department Other [facility]ter Physician and Clinical Staff Initial Hammad Gallagher Welt Pocket Machine Operator Nicole Nunez RN Other cathlab, cathlab Recorder Vaishali Branch,RT(R) TECH2 Scrub Jagdish Moreira,RT(R) Procedures Performed Procedure Location (Site) Vessel Name Coronary Angiograms LCA Left Coronary Coronary Angiograms RCA Right Coronary Equipment Time Frame Welder Cargo Utility Trailers Description Size Mfg Part Number Used/Scraped TRANSDUCER, TRUWAVE [id number] 10:22 CONTRERAS COFFEY * Used W/STOCKCOCK *[id number] 10:22 [employer] BLANKET,WARM AIR CCL * Used *[id number] 10:22 [employer] PACK, CCL CUSTOM * Used *[id number] 10:22 [employer] SUPPORT, ARTERIAL ADULT 34900 *[id number] Used [id number] 10:22 [employer] PACER PEN, SKIN DUAL W/ RULER * Used *[id number] BAND, RADIAL COMPRESSION TR [id number] 11:15 [employer] MEDICAL 24CM Used SHORT 24 *[id number] 10:22 [employer] WIRE, EXCHANGE 260CM 3MMJ 260CM Used *[id number] 10:22 NAMIC MANIFOLD, 4 PORT * Used *[id number] 10:22 NAMIC TUBING, HIGH PRESSURE 20" 20" Used *[id number] 10:22 [employer]ED OMNIPAQUE, 350 MG, 150ML 150ML [id number] Used CATHETER, FR5 OPTITORQUE [id number] 11:08 [employer] FR 5 Used RADIAL TIG 4.0 *[id number] SHEATH, FR6 TRANSRADIAL RM*[id number] 10:22 [employer] FR 6 Used SLENDER 10CM *[id number] History: Current Medications Medication Dosage/Unit Route Frequency Last Date/Time Taken HCTZ Statins (any) History: Allergies Allergy Reaction No Known Allergies History: Risk Factors Family History of Hypertension Dyslipidemia Previous LA Previous Heart Failure Premature CAD Yes Yes No No No Prior Valve Prior PCI Prior CABG Surgery No No No Cerebrovascular Peripheral Artery Chronic Lung On Dialysis Diabetes Diabetes Therapy Disease Disease Disease No No No No Yes Oral History: Symptoms/Diagnosis Selection Items Chest pain History: Stress Tests Stress or Imaging Studies Performed No History: Other Current Smoker No Labs Hgb (g/dl) Hct (%) RBC (MIL/MM3) 11.60-17.00 35.00-51.00 4.00-5.90 11.9 36.2 4.2 Creatinine (mg/dl) 0.50-1.30 0.9 PT (sec) INR (PTT:PT) 9.80-11.60 0.90-1.10 10.7 1.1 CPK-MB (ng/ML) 0.50-3.60 Not Drawn Medication Medication Total Dose (Bolus/Oral) Medication Total Dosage/Unit 1% XYLOCAINE 20 mL FENTANYL 25 mcg RADIAL COCKTAIL 5 mL (Bolus) VERSED 1 mg Medications (Bolus/Oral) Medication Time Given Dosage/Unit Administered By Reason VERSED 03/14/2018 11:01:53 AM 1 mg Nicole Nunez 1 mg VERSED given in lab by Nicole Nunez RN in Left Hand via Peripheral IV. Ordered by Marry Manley. 1% XYLOCAINE 03/14/2018 11:04:12 AM 20 mL Hammad Manley 20 mL 1% XYLOCAINE given in lab by Hammad Manley in Right Radial via Subcutaneous. Ntg 200mcg Verapamil 2.5mg Heparin RADIAL COCKTAIL 03/14/2018 11:07:30 AM 5 mL (Bolus) Hammad Manley 2000U 5 mL (Bolus) RADIAL COCKTAIL given in lab by Hammad Manley in Right Radial via Intra-arterial. Using [Solution Name]. Ordered by Hammad Manley. Reason: Ntg 200mcg Verapamil 2.5mg Heparin 2000U. FENTANYL 03/14/2018 11:13:45 AM 25 mcg Nicole Nunez 25 mcg FENTANYL given in lab by Nicole Nunez, JOHN in Left Hand via Peripheral IV. Medication (Drip) Medication Time Given Dosage/Unit Concentration/Unit Diluent (ml) Solution IV Solutions 03/14/2018 11:05:08 AM 0 mL (IV) 500 NaCl .9 IV Solutions given pre op by cathlab, cathlab in Left Hand via Peripheral IV. Pump/Drip Flow = 20 ml/ hr using NaCl .9. Ordered by Hammad Manley. Initial Case Assessment Cardiovascular HR Rhythm NIBP Chest Pain 85 sr 135/78 0 Edema Present Skin color Skin None Normal Warm Dry Circulatory - Right Pulses Dorsalis Pedis Femoral Radial 2 2 2 Scale (0,1,2,3,4,d) Circulatory - Left Pulses Dorsalis Pedis Femoral Radial 2 2 Scale (0,1,2,3,4,d) Neurological State Oriented to time-place- Alert Moves all extremities person Respiration - General Respiration Rate SpO2 (%) (B/min) 18 95 Final Case Assessment Cardiovascular HR Rhythm NIBP Chest Pain 82 sr 129/75 0 Edema Present Skin color Skin None Normal Warm Dry Circulatory - Right Pulses Dorsalis Pedis Femoral Radial 2 2 2 Scale (0,1,2,3,4,d) Circulatory - Left Pulses Dorsalis Pedis Femoral Radial 2 2 Scale (0,1,2,3,4,d) Neurological State Oriented to time-place- Alert Moves all extremities person Respiration - General Respiration Rate SpO2 (%) (B/min) 13 95 Chronological Log Time Study Chronological Log 10:40:23 Patient arrived via Bed. Vitals capture started with the following parameters, Patient=Adult, Interval=5 min, Initial Pr erlwpy=435 mmHg, 10:48:20 Deflation Rate=5 mmHg, Cuff placed on Right Ankle 10:48:28 Patient Name, D.O.B, / [place] Verified By R.N. 10:48:29 Pre-op and post- op instructions given; patient acknowledges understanding of instructions. 10:48:31 Presedation assessment performed by Lining Setter RN. 10:48:34 Allens test performed on the right radial and ulnar artery. 10:48:35 Patient has been NPO for More than 6Hrs. 10:48:36 Skin Breakdown- 10:48:38 A # 20 IV was noted in the Hand (left). Grade = 0 10:48:42 History and physical on the chart or being dictated. Assessment: Initial Case, HR=85 BPM, Rhythm=sr, VWIF=975/78 mmhg, Chest Pain=0, Edema=None, Col or=Normal, Skin = Warm, Dry Right Pulses: Crow Ped=2, Femoral=2, Radial=2 10:48:45 Left Pulses: Crow Ped=2, Femoral=2 Neurological: State=Alert, Ox3, [place] Respiration: Resp=18 B/min, SpO2=95 % 10:48:59 HR=97 bpm, YTKF=311/78 mmhg, SpO2=96.0 %, Resp=13 B/min, Pain=0, Evon=10, Wilks=2 10:54:00 HR=85 bpm, XHPM=575/74 mmhg, SpO2=93.0 %, Resp=16 B/min, Pain=0, Evon=10, Wilks=2 10:58:57 HR=84 bpm, CYGT=965/77 mmhg, SpO2=95 %, Resp=16 B/min, Pain=0, Evon=10, Wilks=2 11:01:33 Reference ECG taken 11:01:38 Pressure channel 1 zeroed. 11:01:53 1 mg VERSED given in lab by Nicole Nunez RN in Left Hand via Peripheral IV. Ordered by Hammad Manley. Time Out. Correct patient, correct procedure, correct physician, labs, allergies, and equipment verified with crown and bridge dental lab technician 11:02:59 team present. Fire risk assesment completed (see hard stop sheet for coding). Time Out Conc urred by MD and individual staff in procedure. 11:03:51 Case Start 11:04:00 HR=86 bpm, RMWV=810/73 mmhg, SpO2=96.0 %, Resp=16 B/min, Pain=0, Evon=10, Wilks=2 11:04:12 20 mL 1% XYLOCAINE given in lab by Hammad Manley in Right Radial via Subcutaneous. IV Solutions given pre op by cathlab, cathlab in Left Hand via Peripheral IV. Pump/Drip Flow = 20 ml/hr using NaCl .9. 11:05:08 Ordered by Hammad Manley. 11:06:56 Access site was Radial Artery. A SHEATH, FR6 TRANSRADIAL SLENDER 10CM FR 6 was advanced into the Radial (right) using the Perc utaneous 11:07:02 technique. A CATHETER, FR5 OPTITORQUE RADIAL TIG 4.0 FR 5 was advanced over a wire. OMNIPAQUE, 350 MG, 150 ML 150ML 11:07:14 was used for injections. 5 mL (Bolus) RADIAL COCKTAIL given in lab by Hammad Manley in Right Radial via Intra-arterial. Using [Solution Name]. 11:07:30 Ordered by Hammad Manley. Reason: Ntg 200mcg Verapamil 2.5mg Heparin 2000U. 11:09:03 HR=86 bpm, UMRO=390/65 mmhg, SpO2=94.0 %, Resp=9 B/min, Pain=0, Evon=10, Wilks=2 Recorded Pressure: Ao, HR=87, Condition=Condition 1 11:11:27 (Aorta) Ao 104/64/83 11:11:45 The RCA was injected and visualized at various angles. OMNIPAQUE, 350 MG, 150ML 150ML used . 11:12:38 The LCA was injected and visualized at various angles. OMNIPAQUE, 350 MG, 150ML 150ML used . 11:13:45 25 mcg FENTANYL given in lab by Nicole Nunez RN in Left Hand via Peripheral IV. 11:14:00 HR=88 bpm, GCPY=887/72 mmhg, SpO2=95.0 %, Resp=15 B/min, Pain=0, Evon=10, Wilks=2 11:18:59 HR=84 bpm, VBUK=049/75 mmhg, Resp=12 B/min 11:19:01 Catheter was removed 11:19:20 No case complications noted. 11:19:22 Case End (Physician broke scrub) 11:19:28 Cine recording checked. Radial Compression Device Used. 9 mLs of air placed in BAND, RADIAL COMPRESSION TR SHORT 24 24C M. Affected 11:19:30 hand 96 % O2 saturation. 11:23:05 DOCU called. Spoke to Aldo Rn 11:23:37 Vitals capture stopped. Assessment: Final Case, HR=82 BPM, Rhythm=sr, ZABK=723/75 mmhg, Chest Pain=0, Edema=None, Color =Normal, Skin = Warm, Dry Right Pulses: Crow Ped=2, Femoral=2, Radial=2 11:23:42 Left Pulses: Crow Ped=2, Femoral=2 Neurological: State=Alert, Ox3, [place] Respiration: Resp=13 B/min, SpO2=95 % 11:25:00 Patient moved to stretcher End Study - Contrast Media Used In Study Contrast Total Opened (mL) Total Used (mL) Total Wasted (mL) Omnipaque 30 30 0 End Study - Maximum Contrast Load Max Contrast Load (mL) 526.0 End Study - Radiation Exposure Fluoro Time (minutes) 3.5 End Study - Patient Disposition Complications Transferred To No Outpatient Bed
== END 2018-03-14 13:32 | disposition home or self-care (01) ==
LOC: HDOC 09:51 → HDIC 09:52 → HDOC 13:32
PROVIDERS: ATTEND Internal Medicine Cardiovascular Disease
DX: I25.110 Atherosclerotic heart disease of native coronary artery with unstable angina pectoris (principal); I10 Essential (primary) hypertension; R01.1 Cardiac murmur, unspecified; E66.9 Obesity, unspecified; E78.2 Mixed hyperlipidemia; E10.9 Type 1 diabetes mellitus without complications; Z79.84 Long term (current) use of oral hypoglycemic drugs; Z68.37 Body mass index [BMI] 37.0-37.9, adult
CPT/HCPCS: 80048; 85025; 85610; 93454; 99152; C1769; C1893; J1644; J2250; J3010; Q9967